=== PATIENT | male | born 1960 | race Caucasian/White ===

== ENCOUNTER 2024-03-30 18:52 | Emergency (ER) | payer OTHER, SELFPAY ==
--- NOTE | ~2024-03-30 | US_ITS ---
EXAMINATION: US venous doppler LE RT DATE: 03/30/2024 20:57 INDICATION: Right lower limb pain. TECHNIQUE: Grayscale ultrasound images without and with compression and Doppler ultrasound images of the right lower extremity veins were obtained. COMPARISON: None. FINDINGS: The visualized portions of right common femoral vein, profunda (deep) femoral vein, femoral vein, pop liteal vein, posterior tibial veins, and greater saphenous vein outflow are patent. IMPRESSION: 1. No deep venous thrombosis. Reviewed, dictated and finalized at location A.
[2024-03-30 18:54] VITALS: BP 154/61; PULSE 79; RESP 20; TEMP 36.1; O2SAT 100
--- NOTE | 2024-03-30 19:40 | ED.WOUNDLAC ---
HPI - Wound/Laceration General Chief Complaint: Wound/Laceration <CARO Rangel Last Filed: 03/31/24 00:33> Stated Complaint: WOUND R LEG /SP SURGERY IN [place] <CARO Rangel Last Filed: 03/31/24 00:33> Time Seen by Provider: 03/30/24 19:37 <CARO Rangel Last Filed: 03/31/24 00:33> Source: patient <CARO Rangel Last Filed: 03/31/24 00:33> Mode of arrival: ambulatory <CARO Rangel Last Filed: 03/31/24 00:33> Limitations: no limitations <CARO Rangel Last Filed: 03/31/24 00:33> History of Present Illness HPI narrative: Patient is a 63 y/o male, with PMH of L AKA, PVD, HTN, who presents to the ED with c/o wound to his R lower leg. Patient is a poor historian. He reports he had a vein surgery in his right lower leg 3-4 months ago. This was performed at [facility] in [facility]. He is unsure of the name of his surgeon. He states over the last several days, he has noticed increased purulent drainage from his wound. Daughter reports his bandage was filled with purulent drainage a couple of days ago. Patient reports subjective fevers and pain throughout his right lower leg. He takes gabapentin and Tylenol for his pain. Patient is on plavix and xarelto 2.5mg daily. Reports compliance with medications. Is waiting for insurance approval to be transferred to wound care in the area. Recently moved from [place], [place] area. <CARO Rangel Last Filed: 03/31/24 00:33> Related Data Allergies/Adverse Reactions: Allergies Allergy/AdvReac Type Severity Reaction Status Date / Time No Known Allergies Allergy Verified 03/30/24 18:58 <CARO Rangel Last Filed: 03/31/24 00:33> Review of Systems Review of Systems: All systems reviewed & are unremarkable except as noted in HPI. <Carisa Calvo PA-C - Last Filed: 03/31/24 00:33> All systems reviewed & are unremarkable except as noted in HPI and below <Carisa Calvo PA-C - Last Filed: 03/31/24 00:33> Exam Narrative: GENERAL: Chronically ill appearing, appears older than stated age, non-toxic, in no acute distress. HEAD: Normocephalic, atraumatic. RESPIRATORY: Airway patent, respirations nonlabored. CARDIOVASCULAR: Regular rate and rhythm without murmurs, rubs, or gallops. Peripheral pulses intact in RLE. MUSCULOSKELETAL: Moves all extremities. No gross deformities. L AKA. Stump site is clean and intact. Small hematoma to distal stump w/o significant tenderness. SKIN: Warm, dry, normal color. Large approx 16 cm vertical wound extending almost entire distance of juarez, R lower leg medial from tibial anterior border. Wound edges are approx 1-2cm apart still but appear to be healing well. There is some purulent drainage present in wound bed, particularly inferiorly. There is healthy granulation tissue present as well. Focal surrounding tenderness. Minimal surrounding warmth/erythema. Well healed vertical surgical scar on lateral edge of calf. No surrounding erythema or drainage. NEURO: A&O X3. Speech clear. Cranial nerves II-XII grossly intact. No ataxic movements. PSYCHIATRIC: Appropriate mood and affect. Normal interaction. <Carisa Calvo PA-C - Last Filed: 03/31/24 00:33> Course INFORMATION OFFICER/PA Physician Supervision Patient's HPI, Exam, and MDM were reviewed and I agreed with the workup and disposition done in the emergency department by the MLP. Patient was independently evaluated and assessed by myself and I had [id number] time with the patient and family members and we discussed plan of care. Patient does have a wound on his right lower extremity that is been well-healing for last 3 months but becoming more hot, erythematous and draining combination is serosanguineous and more purulent fluid over last few days although clinically appears very well with good granulation
[2024-03-30 20:20] VITALS: BP 146/65; PULSE 83; RESP 15; O2SAT 99
[2024-03-30 20:21] LABS: Basophils Percent Auto 0.3 % (0.2-1.2); Eosinophils Absolute Auto 0.3 K/mm3 (0-0.3); Eosinophils Percent Auto 4.9 % (0-4.4); Hematocrit 35.9 % (42.0-52.0); Hemoglobin 10.7 g/dL (14.0-18.0); Immature Granulocyte Absolute 0.02 K/mm3 (0.00-0.031); Immature Granulocyte Percent A 0.3 % (0-0.5); Lymphocytes Absolute Auto 0.81 K/mm3 (0.9-3.2); Lymphocytes Percent Auto 11.7 % (18.3-44.2); Mean Corpuscular HGB Conc 29.8 g/dl (32-36); Mean Corpuscular Hemoglobin 23.7 pg (26-34); Mean Corpuscular Volume 79.6 fl (80-100); Mean Platelet Volume 9.7 fl (7.4-10.4); Monocytes Absolute Auto 0.9 K/mm3 (0.1-0.6); Monocytes Percent Auto 12.4 % (2.6-8.5); Neutrophils Absolute Auto 4.9 K/mm3 (1.3-6.7); Neutrophils Percent Auto 70.4 % (45.5-73.1); Platelet Count Result 428 k/mm3 (150-375); Red Blood Count 4.51 M/mm3 (4.6-6.20); Red Cell Distribution Width 17.2 % (11.5-14.5); White Blood Count 6.9 K/mm3 (4.5-10.0)
[2024-03-30 20:34] LABS: Hypochromasia 1+; Ovalocytes 1+; Platelet Estimate Increased (Adequate)
[2024-03-30 20:35] LABS: INR 1.1; Prothrombin Time 14.2 Seconds (11.1-14.7); Schistocytes None Seen
[2024-03-30 20:36] LABS: Lactic Acid Reflex 1.2 mmol/L (0.7-2.0); Partial Thromboplastin Time 25.8 Seconds (22.3-36.8)
[2024-03-30 20:43] LABS: Alanine Aminotransferase 17 U/L (6-50); Albumin Level 4.1 g/dL (3.5-5.1); Alkaline Phosphatase 119 U/L (38-126); Anion Gap 7 mmol/L (4-12); Aspartate Amino Transferase 32 U/L (17-59); Bilirubin,Total 0.3 mg/dL (0.2-1.3); Blood Urea Nitrogen 17 mg/dL (9-20); CRP < 0.5 mg/dL (<1.0); Calcium 8.9 mg/dL (8.4-10.2); Carbon Dioxide 28 mmol/L (22-30); Chloride 102 mmol/L (98-107); Estimated Glomerular Filt Rate > 60; Glucose 106 mg/dL (65-110); Potassium 4.3 mmol/L (3.4-5.0); Sodium 137 mmol/L (137-145)
[2024-03-30] MEDS: HYDROcodone/acetaminophen (*CRX) 5-325 MG TABLET 1 TAB PO (20:49)
[2024-03-30 20:52] LABS: Erythrocyte Sedimentation Rate 19 mm/hr (0-20)
[2024-03-30] MEDS: DOXYCYCLINE HYCLATE 100 MG TABLET PO (22:37)
[2024-03-30 22:45] VITALS: BP 136/78; PULSE 74; RESP 18; TEMP 36.9; O2SAT 98
== END 2024-03-30 22:51 | disposition home or self-care (01) ==
PROVIDERS: Emergency Provider Physician Assistant
DX: T81.41XA Infection following a procedure, superficial incisional surgical site, initial encounter (principal); L03.115 Cellulitis of right lower limb; I73.9 Peripheral vascular disease, unspecified; Z79.02 Long term (current) use of antithrombotics/antiplatelets; Z79.01 Long term (current) use of anticoagulants; Y83.8 Other surgical procedures as the cause of abnormal reaction of the patient, or of later complication, without mention of misadventure at the time of the procedure
CPT/HCPCS: 36415; 80053; 83605; 85025; 85610; 85652; 85730; 86140; 93971; 99284; A9270

== ENCOUNTER 2024-04-26 19:52 | Observation (INO) | payer OTHER, SELFPAY ==
--- NOTE | ~2024-04-26 | XR_ITS ---
AP and lateral views of the right tibia/fibula Clinical History: Infection Findings: No acute fracture or dislocation is seen. Osseous alignment is anatomic. Joint spaces are p reserved without significant erosive or degenerative change. Soft tissues are unremarkable. Impression: No osseous or articular abnormality seen. Reviewed, dictated and finalized at [facility]. RUNNER Impression: No osseous or articular abnormality seen.
--- NOTE | ~2024-04-26 | CT_ITS ---
CT of the Abdomen and Pelvis: Indication: Status post fall Technique: 2.5 mm axial scans were obtained through the abdomen and pelvis following intravenous adm inistration of 100 cc of Omnipaque 350. Dose reduction technique was used on this scan by utilizing a utomated exposure control and iterative reconstruction technique. The dose-length product (DLP) was 1 064.17 mGy-cm. Findings: Scans through the lung bases demonstrate mild emphysematous changes. The liver, spleen, pancreas, gallbladder, adrenals and kidneys are within normal limits. There are ex tensive atherosclerotic calcifications of the aorta and iliac vessels. No lymphadenopathy. No bowel obstruction or bowel wall thickening. There is no evidence to suggest acute appendicitis. Images through the pelvis were performed. Urinary bladder unremarkable. No pelvic mass seen. No ascit es. Large right hydrocele noted Impression: No acute abnormality. Large right hydrocele. Mild emphysema at the lung bases. Reviewed, dictated and finalized at [facility]. ANIC GENERAL OPERATIONAL TEST Impression: No acute abnormality. Large right hydrocele. Mild emphysema at the lung bases.
[2024-04-26 19:55] VITALS: BP 164/68; PULSE 84; RESP 16; TEMP 36.4; O2SAT 100
[2024-04-26 20:27] LABS: Basophils Percent Auto 0.4 % (0.2-1.2); Eosinophils Absolute Auto 0.2 K/mm3 (0-0.3); Eosinophils Percent Auto 4.4 % (0-4.4); Hematocrit 35.2 % (42.0-52.0); Hemoglobin 10.6 g/dL (14.0-18.0); Immature Granulocyte Absolute 0.01 K/mm3 (0.00-0.031); Immature Granulocyte Percent A 0.2 % (0-0.5); Lymphocytes Absolute Auto 0.72 K/mm3 (0.9-3.2); Lymphocytes Percent Auto 14.5 % (18.3-44.2); Mean Corpuscular HGB Conc 30.1 g/dl (32-36); Mean Corpuscular Hemoglobin 23.8 pg (26-34); Mean Corpuscular Volume 79.1 fl (80-100); Mean Platelet Volume 9.4 fl (7.4-10.4); Monocytes Absolute Auto 0.5 K/mm3 (0.1-0.6); Monocytes Percent Auto 10.5 % (2.6-8.5); Neutrophils Absolute Auto 3.5 K/mm3 (1.3-6.7); Platelet Count Result 361 k/mm3 (150-375); Red Blood Count 4.45 M/mm3 (4.6-6.20); Red Cell Distribution Width 17.1 % (11.5-14.5)
[2024-04-26 20:38] LABS: Alanine Aminotransferase 19 U/L (6-50); Albumin Level 4.1 g/dL (3.5-5.1); Alkaline Phosphatase 113 U/L (38-126); Anion Gap 9 mmol/L (4-12); Aspartate Amino Transferase 25 U/L (17-59); Bilirubin,Total 0.3 mg/dL (0.2-1.3); Blood Urea Nitrogen 10 mg/dL (9-20); Calcium 9.2 mg/dL (8.4-10.2); Carbon Dioxide 27 mmol/L (22-30); Chloride 100 mmol/L (98-107); Estimated CRCL calculation 83 ml/min; Estimated Glomerular Filt Rate > 60; Glucose 124 mg/dL (65-110); Potassium 3.4 mmol/L (3.4-5.0); Sodium 136 mmol/L (137-145)
[2024-04-26 20:40] LABS: Prothrombin Time 13.6 Seconds (11.1-14.7)
[2024-04-26 21:09] VITALS: BP 143/62; PULSE 81; RESP 18; TEMP 36.4; O2SAT 100
--- NOTE | 2024-04-26 21:32 | ED.SKABFB ---
HPI - Skin/Abscess/Foreign Bdy General Chief complaint: Skin/Abscess/Foreign Body Stated complaint: infection in stub ; burning Time Seen by Provider: 04/26/24 21:30 Source: patient and family Limitations: other (patient speaks quickly with thick accent making it difficult to understand at times) History of Present Illness HPI narrative: Patient presents with concern for an infection in his stub ; he has a left [id number] amputation. He also is experiencing a burning sensation. In addition he has pain in his right leg. He denies any fevers but he does state that he has been having a ' fever in my leg. Denies any phantom pain. Patient had a previous vein graft surgery performed in [place]. He also a procedure done in [place]. He had a doctor named Dr. Reece at 1 time. He denies any chest pain. He has been taking Tylenol and ibuprofen 2 or 3 times per day. He has been walking on his right leg but not now do a symptoms. The left leg amputation was performed 2 years ago. Approximately 6 months ago he had a vascular surgery procedure on the right. He was initially at [facility] but then transferred to [place]. He has not followed up for several of his appointments because he moved. He notes that he had multiple staph infections. He is also concerned because he is out of his medications and a blood thinner (does not know which 1) and his blood pressure medication. He does not know any of these medications though he states the last time they were filled was at [facility] in [facility] as well as some at [facility] in [place]. He also previously min to a wound clinic in [place] the last time he was there was 2 months ago. He states that the right leg has chronically been open since his procedure and is not healing. Two nights ago he fell out of his bed striking his left flank/back/abdomen. Related Data Home Medications Medication Instructions Recorded Confirmed albuterol sulfate 90 mcg/actuation 2 puff inhalation Q4H PRN SOB 04/27/24 04/27/24 aerosol inhaler aspirin 81 mg chewable tablet 81 mg PO DAILY 04/27/24 04/27/24 atorvastatin 40 mg tablet 40 mg PO DAILY 04/27/24 04/27/24 clopidogrel 75 mg tablet 75 mg PO BID 04/27/24 04/27/24 duloxetine 60 mg capsule,delayed 60 mg PO DAILY 04/27/24 04/27/24 release gabapentin 600 mg tablet 600 mg PO BID 04/27/24 04/27/24 isosorbide mononitrate 30 mg 30 mg PO DAILY 04/27/24 04/27/24 tablet,extended release 24 hr metoprolol tartrate 25 mg tablet 25 mg PO DAILY 04/27/24 04/27/24 pantoprazole 40 mg tablet,delayed 40 mg PO BID 04/27/24 04/27/24 release potassium chloride 10 mEq 10 meq PO DAILY 04/27/24 04/27/24 tablet,extended release umeclidinium 62.5 mcg-vilanterol 1 inh inhalation DAILY 04/27/24 04/27/24 25 mcg/actuation powdr for inhalation (Anoro Ellipta) Allergies Allergy/AdvReac Type Severity Reaction Status Date / Time No Known Allergies Allergy Verified 03/30/24 18:58 PMFSH Past Medical History Medical History Above knee amputation of left lower extremity Surgical History Surgical History (Updated 04/28/24 @ 08:22 by Maria Esther Rodriguez MD) H/O vascular surgery Right Social History Social History Smoking packs per day: 1 Smoking cigarettes per day: 20.0 Years smoked: 20 Smoking pack-years: 20.00 Smoking status: Current every day smoker Substance use type: does not use Do You Feel Safe in your Home?: Yes Lack of Transportation: YES Lack of Food: Sometimes True Current Housing: I Have Housing Concerned About Future Housing: No Difficulty Paying Gas/Electric Bills: No Difficulty Paying for Meds: YES Currently Unemployed: No Education: Grade School Difficulty w/ Childcare or Family Care: No Spiritual care concerns: No Exam Narrative: GENERAL: well-nourished, and in no acute distress. HEAD: Normocephalic, atraumatic. EYES: Non injected, non icteric ENT: Nares clear, no rhinorrhea or epistaxis. NECK: Supple. CHEST: Speaking in full sentences. No respiratory distress. HEART: Regular rate and rhythm. . ABDOMEN: Soft, nondistended. No tenderness to palpation or rigidity/guarding, not peritoneal. Ecchymosis along left low back/lateral aspect of left abdomen. EXTREMITIES: Left AKA with small areas of previous ulceration but otherwise without surrounding cellulitis or induration or purulent dicharge. Right lower leg with linear surgical scar that appears to be healing appropriately without purulent discharge although there is edema and non-distinct surrounding erythema that is warm to the touch compared to the rest of the leg. No induration. SKIN: Warm, dry, no rash. NEURO: No focal deficits. Alert and oriented x3. Very difficult to understand given rapidity of speech and thick accent however speaks without aphasia or dysarthria or dysphonia. PSYCH: Normal mood and affect. Course Vital Signs Vital signs: Vital Signs Temperature 97.6 F 04/26/24 19:55 Pulse Rate 84 04/26/24 19:55 Respiratory Rate 16 04/26/24 19:55 Blood Pressure 164/68 H 04/26/24 19:55 Pulse Oximetry 100 04/26/24 19:55 Oxygen Delivery Room Air 04/26/24 19:55 Temperature 98.0 F 04/28/24 05:28 Pulse Rate 57 L 04/28/24 05:28 Respiratory Rate 18 04/28/24 05:28 Blood Pressure 146/65 H 04/28/24 05:28 Pulse Oximetry 98 04/28/24 05:28 Oxygen Delivery Room Air 04/27/24 08:45 Fraction of Inspired Oxygen 21 04/27/24 08:45 MDM - Skin/Abscess/Foreign Bdy MDM Narrative Medical decision making narrative: Patient presents with multiple complaints. He is concerned for infection in his legs. Has a left AKA and history of vascular surgery on the right which has left him with a chronic slow healing wound for which he previously saw wound care. He is also out of his medications. Has not followed up with various specialists which have all been done at varying locations. In the emergency department he is afebrile with vital signs notable for hypertension. Of note, patient was diagnosed with cellulitis on 03/31/2024 and prescribed doxycycline. He states he took the entire course. Point of care ultrasound performed by me which does demonstrate cobblestoning concerning for edema. This, combined with nondescript/not well circumscribed area of erythema with warmth compared to surrounding areas concerning for cellulitis, and in particular cellulitis that failed outpatient p.o. therapy. Area marked with skin pen. Will initiate vancomycin. Discussed patient with on-call hospitalist Dr Bhat who accepts admission as full admit to medical floor, w/o telemetry. She advised to start Pseudomonas coverage if patient is a diabetic but he confirms he is not. Discussed that patient will require refills of several of his prescriptions which she states the day team will be able to do once his pharmacy is open. Discussed the incidental findings on the CT. Differential Diagnosis Differential diagnosis: Likely cellulitis and other (sepsis, considered necrotizing fasciitis, abscess, phantom pain) Lab Data Attestation: I reviewed the patient's lab results. Lab results narrative: Microcytic anemia, stable from previous Very mild CRP elevation and ESR elevation. 04/26/24 20:17 04/28/24 06:12 Labs: Lab Results 04/26/24 04/26/24 04/26/24 Range/Units 20:17 22:17 22:57 WBC 5.0 (4.5-10.0) K/mm3 RBC 4.45 L (4.6-6.20) M/mm3 Hgb 10.6 L (14.0-18.0) g/dL Hct 35.2 L (42.0-52.0) % MCV 79.1 L (80-100) fl MCH 23.8 L (26-34) pg MCHC 30.1 L (32-36) g/dl RDW 17.1 H (11.5-14.5) % Plt Count 361 (150-375) k/mm3 MPV 9.4 (7.4-10.4) fl Immature Gran % (Auto) 0.2 (0-0.5) % Neut % (Auto) 70.0 (45.5-73.1) % Lymph % (Auto) 14.5 L (18.3-44.2) % [place] % (Auto) 10.5 H (2.6-8.5) % Eos % (Auto) 4.4 (0-4.4) % Baso % (Auto) 0.4 (0.2-1.2) % Lymph # (Auto) 0.72 L (0.9-3.2) K/mm3 [place] # (Auto) 0.5 (0.1-0.6) K/mm3 Eos # (Auto) 0.2 (0-0.3) K/mm3 Baso # (Auto) 0.0 (0.0-0.1) K/mm3 Abs Immat Gran (auto) 0.01 (0.00-0.031) K/mm3 Absolute Neuts (auto) 3.5 (1.3-6.7) K/mm3 Absolute Nucleated RBC 0.000 (0.0-0.012) K/mm3 Nucleated RBC % 0.0 (0.0-0.2) % ESR 32 H (0-20) mm/hr PT 13.6 13.9 (11.1-14.7) Seconds INR 1.0 1.0 APTT 26.8 (22.3-36.8) Seconds D-Dimer 0.43 (<0.48) ug/mL Sodium 136 L (137-145) mmol/L Potassium 3.4 (3.4-5.0) mmol/L Chloride 100 (98-107) mmol/L Carbon Dioxide 27 (22-30) mmol/L Anion Gap 9 (4-12) mmol/L BUN 10 D (9-20) mg/dL Creatinine 0.80 (0.7-1.3) mg/dL Estim Creat Clear Calc 83 ml/min Estimated GFR > 60 (59 - ) Glucose 124 H (65-110) mg/dL Lactic Acid 1.3 (0.7-2.0) mmol/L Calcium 9.2 (8.4-10.2) mg/dL Total Bilirubin 0.3 (0.2-1.3) mg/dL AST 25 (17-59) U/L ALT 19 (6-50) U/L Alkaline Phosphatase 113 (38-126) U/L C-Reactive Protein 1.3 H (<1.0) mg/dL Total Protein 8.0 (6.3-8.2) g/dL Albumin 4.1 (3.5-5.1) g/dL Urine Color (Yellow) Urine Appearance (Clear) Urine pH (5.0-9.0) Ur Specific [place] (1.001-1.035) Urine Protein (Negative) mg/dL Urine Glucose (UA) (Negative) mg/dL Urine Ketones (Negative) mg/dL Ur Blood (Man) (Negative) Urine Nitrate (Negative) Urine Bilirubin (Negative) Urine Urobilinogen (<2.0) mg/dL Leukocyte Esterase Rfl (Negative) KANA/UL 04/27/24 Range/Units 00:37 WBC (4.5-10.0) K/mm3 RBC (4.6-6.20) M/mm3 Hgb (14.0-18.0) g/dL Hct (42.0-52.0) % MCV (80-100) fl MCH (26-34) pg MCHC (32-36) g/dl RDW (11.5-14.5) % Plt Count (150-375) k/mm3 MPV (7.4-10.4) fl Immature Gran % (Auto) (0-0.5) % Neut % (Auto) (45.5-73.1) % Lymph % (Auto) (18.3-44.2) % [place] % (Auto) (2.6-8.5) % Eos % (Auto) (0-4.4) % Baso % (Auto) (0.2-1.2) % Lymph # (Auto) (0.9-3.2) K/mm3 [place] # (Auto) (0.1-0.6) K/mm3 Eos # (Auto) (0-0.3) K/mm3 Baso # (Auto) (0.0-0.1) K/mm3 Abs Immat Gran (auto) (0.00-0.031) K/mm3 Absolute Neuts (auto) (1.3-6.7) K/mm3 Absolute Nucleated RBC (0.0-0.012) K/mm3 Nucleated RBC % (0.0-0.2) % ESR (0-20) mm/hr PT (11.1-14.7) Seconds INR APTT (22.3-36.8) Seconds D-Dimer (<0.48) ug/mL Sodium (137-145) mmol/L Potassium (3.4-5.0) mmol/L Chloride (98-107) mmol/L Carbon Dioxide (22-30) mmol/L Anion Gap (4-12) mmol/L BUN (9-20) mg/dL Creatinine (0.7-1.3) mg/dL Estim Creat Clear Calc ml/min Estimated GFR (59 - ) Glucose (65-110) mg/dL Lactic Acid (0.7-2.0) mmol/L Calcium (8.4-10.2) mg/dL Total Bilirubin (0.2-1.3) mg/dL AST (17-59) U/L ALT (6-50) U/L Alkaline Phosphatase (38-126) U/L C-Reactive Protein (<1.0) mg/dL Total Protein (6.3-8.2) g/dL Albumin (3.5-5.1) g/dL Urine Color Yellow (Yellow) Urine Appearance Clear (Clear) Urine pH 6.5 (5.0-9.0) Ur Specific [place] 1.033 (1.001-1.035) Urine Protein Negative (Negative) mg/dL Urine Glucose (UA) Negative (Negative) mg/dL Urine Ketones Negative (Negative) mg/dL Ur Blood (Man) Negative (Negative) Urine Nitrate Negative (Negative) Urine Bilirubin Negative (Negative) Urine Urobilinogen 0.2 (<2.0) mg/dL Leukocyte Esterase Rfl Negative (Negative) KANA/UL Imaging Data Attestation: I personally reviewed and interpreted this imaging study as follows: My impression: Multiple areas of lucency on x-ray of tibia/fibula on my independent interpretation of plain film which is likely secondary to postsurgical clips/intervention. No obvious bony deformities or evidence of gas. Radiologist's impression: CT Abd Pelvix Stat Rad: No retroperitoneal hematoma. Renal injury. Free air or free fluid. Incidental findings: Bifemoral artery bypass graft his within the subcutaneous fat tissue and not in continuity with femoral arteries. Degenerative changes of the spine. Aortoiliac atherosclerosis. Stents in the bilateral external iliac arteries. 1.1 cm right hepatic cyst. Right scrotal hydrocele. 5 mm right renal cyst. Discharge Plan Discharge Clinical Impression: Cellulitis of right anterior lower leg, Microcytic anemia, CRP elevated, Elevated erythrocyte sedimentation rate Patient Disposition: Still a Patient Condition: Stable
[2024-04-26 22:24] LABS: CRP 1.3 mg/dL (<1.0)
[2024-04-26] MEDS: HYDROcodone/acetaminophen (*CRX) 5-325 MG TABLET 1 TAB PO (22:26)
[2024-04-26 22:38] LABS: Lactic Acid Reflex 1.3 mmol/L (0.7-2.0)
[2024-04-26 23:07] VITALS: BP 144/53; PULSE 61; RESP 15; O2SAT 98
[2024-04-26 23:41] LABS: Erythrocyte Sedimentation Rate 32 mm/hr (0-20)
[2024-04-27 00:25] LABS: Partial Thromboplastin Time 26.8 Seconds (22.3-36.8); Prothrombin Time 13.9 Seconds (11.1-14.7)
[2024-04-27 00:26] LABS: D Dimer 0.43 ug/mL (<0.48)
[2024-04-27 00:41] VITALS: BP 105/78; PULSE 64; RESP 14; O2SAT 97
[2024-04-27 00:44] LABS: Add Urine Microscopic? NO; Appearance Urine Clear (Clear); Bilirubin Urine Negative (Negative); Blood Urine Negative (Negative); Color Urine Yellow (Yellow); Glucose Urine UA Negative (Negative); Ketones Urine Negative (Negative); Leukocyte Esterase Ur Negative LEU/UL (Negative); Nitrate Urine Negative (Negative); Protein Urine Negative (Negative); Specific Grav Ur 1.033 (1.001-1.035); Urobilinogen Urine 0.2 mg/dL (<2.0); pH Urine 6.5 (5.0-9.0)
--- NOTE | 2024-04-27 01:17 | PM.IMHP ---
H&P: HPI History of Present Illness Date/Time: 04/27/24 01:17 Chief Complaint: right leg redness Narrative: This is a 64-year-old male with past medical history significant for peripheral vascular disease, patient is status post bypass grafting to the right lower extremity 6 months ago, he also has a left AKA, patient presents to the emergency room due to redness tenderness swelling of the right lower extremity along graft site. Patient is not a very good historian has trouble remembering events to detail. Preliminary workup was lower yielding however imaging final official report is pending at the time of this dictation. Patient has been admitted for further evaluation management and treatment. Review of Systems Review of Systems: right lower extremities swelling, tenderness, redness along side graft site wound is healed by secondary intention [facility] Social History Social History Smoking packs per day: 1 Smoking cigarettes per day: 20.0 Years smoked: 20 Smoking pack-years: 20.00 Smoking status: Current every day smoker Substance use type: does not use Do You Feel Safe in your Home?: Yes Lack of Transportation: YES Lack of Food: Sometimes True Current Housing: I Have Housing Concerned About Future Housing: No Difficulty Paying Gas/Electric Bills: No Difficulty Paying for Meds: YES Currently Unemployed: No Education: Grade School Difficulty w/ Childcare or Family Care: No Spiritual care concerns: No Meds Home Medications and Allergies Home Medications Medication Instructions Recorded Confirmed Type albuterol sulfate 90 mcg/actuation 2 puff inhalation Q4H PRN SOB 04/27/24 04/27/24 History aerosol inhaler aspirin 81 mg chewable tablet 81 mg PO DAILY 04/27/24 04/27/24 History atorvastatin 40 mg tablet 40 mg PO DAILY 04/27/24 04/27/24 History clopidogrel 75 mg tablet 75 mg PO BID 04/27/24 04/27/24 History duloxetine 60 mg capsule,delayed 60 mg PO DAILY 04/27/24 04/27/24 History release gabapentin 600 mg tablet 600 mg PO BID 04/27/24 04/27/24 History isosorbide mononitrate 30 mg 30 mg PO DAILY 04/27/24 04/27/24 History tablet,extended release 24 hr metoprolol tartrate 25 mg tablet 25 mg PO DAILY 04/27/24 04/27/24 History pantoprazole 40 mg tablet,delayed 40 mg PO BID 04/27/24 04/27/24 History release potassium chloride 10 mEq 10 meq PO DAILY 04/27/24 04/27/24 History tablet,extended release umeclidinium 62.5 mcg-vilanterol 1 inh inhalation DAILY 04/27/24 04/27/24 History 25 mcg/actuation powdr for inhalation (Anoro Ellipta) Allergies Allergy/AdvReac Type Severity Reaction Status Date / Time No Known Allergies Allergy Verified 03/30/24 18:58 Vital Signs Vital Signs - 24 hr 04/26/24 19:55 04/26/24 21:09 04/26/24 23:07 Temperature 97.6 F 97.6 F Pulse Rate 84 81 61 Respiratory Rate 16 18 15 Blood Pressure 164/68 H 143/62 H 144/53 H Pulse Oximetry 100 100 98 Oxygen Delivery Room Air 04/27/24 00:41 Temperature Pulse Rate 64 Respiratory Rate 14 Blood Pressure 105/78 Pulse Oximetry 97 Oxygen Delivery Exam Narrative: patient is laying in a stretcher Const: General: cooperative, comfortable, no acute distress, well developed, alert, awake, ill appearing chronically and average body habitus Nutritional Appearance: average body habitus Orientation/consciousness: patient oriented x3 HENMT: Head: normal to inspection, normocephalic and atraumatic Ears: hearing grossly normal bilaterally Face/Nose/Sinus: normal facial exam Face and sinus: normal facial exam Eyes: General: appearance normal, both eyes and all related structures Pupils: Equal, round and reactive pupils present EOM: EOMs intact bilaterally Neck: Neck: full ROM, no lymphadenopathy and no JVD Thyroid: thyroid normal Lymphatic: no lymphadenopathy noted Resp: Effort & Inspection: normal respiratory effort and able to speak in complete sentences Auscultation: clear to auscultation bilaterally Cardio: Jugular venous distension: no JVD Rate: regular rate Rhythm: regular rhythm Heart sounds: S1 normal heart sound present and S2 normal heart sound present GI: GI Palp: Yes Soft to palpation and Yes No hepatosplenomegaly present : General: Yes deferred Skin: Rashes: no rashes Wounds: wounds noted right leg without odor and with surrounding erythema Other: stump with excoriations Neuro: General: patient oriented x3 and CN's II-XI intact bilaterally Cranial nerves: Yes CN's II-XII intact bilaterally and Yes Equal, round and reactive pupils present Cognition (Neuro): normal cognition Speech: normal speech Gait exam (Neuro): Unable to assess gait Motor exam (neuro): 5/5 motor strength present throughout Other: patient has a left AKA Extrem: Right lower extremity: lower leg Details: erythema and other ( surgical wound on the medial aspect) Other: left AKA H&P: Results Labs Labs: Short CBC 04/26/24 Range/Units 20:17 WBC 5.0 (4.5-10.0) K/mm3 Hgb 10.6 L (14.0-18.0) g/dL Hct 35.2 L (42.0-52.0) % Plt Count 361 (150-375) k/mm3 BMP 04/26/24 20:17 Sodium 136 L Potassium 3.4 Chloride 100 Carbon Dioxide 27 BUN 10 D Creatinine 0.80 Glucose 124 H Calcium 9.2 Liver Function 04/26/24 Range/Units 20:17 Total Bilirubin 0.3 (0.2-1.3) mg/dL AST 25 (17-59) U/L ALT 19 (6-50) U/L Alkaline Phosphatase 113 (38-126) U/L Albumin 4.1 (3.5-5.1) g/dL Urine 04/27/24 Range/Units 00:37 Urine Color Yellow (Yellow) Urine Appearance Clear (Clear) Urine pH 6.5 (5.0-9.0) Ur Specific [place] 1.033 (1.001-1.035) Urine Protein Negative (Negative) mg/dL Urine Glucose (UA) Negative (Negative) mg/dL Assessment and Plan Assessment and plan (1) Cellulitis of right anterior lower leg: Code(s): L03.115 - Cellulitis of right lower limb Status: Acute Assessment and Plan: admit to regular medical floor patient started on vancomycin await cultures (2) Peripheral vascular disease: Code(s): I73.9 - Peripheral vascular disease, unspecified Status: Acute Assessment and Plan: a status post bypass grafting (3) Unilateral AKA: Code(s): S78.119A - Complete traumatic amputation at level between unspecified hip and knee, initial encounter Status: Acute Assessment and Plan: patient has been having recurrent falls PT OT consult (4) COPD with emphysema: Code(s): J43.9 - Emphysema, unspecified Status: Acute Assessment and Plan: not actively wheezing continue home meds Hospitalist MIPS Advance Care Plan I have confirmed that the patient's Advanced Care Plan is present, code status is documented, or surrogate decision maker is listed in patient medical record.: Yes Medication Reconciliation I have utilized all available resources to obtain, update and review the patients current medications (includes all prescriptions, OTC, herbals, cannabis, and nutritional supplements).: Yes
--- NOTE | 2024-04-27 01:44 | PC.NURSE ---
pt sister called up and asked for an update. this RN verified with the pt that would be fine and pt agreed. pt sister was updated at this time to inform that the pt would be admitted pt sister: Lizzy
--- NOTE | 2024-04-27 01:59 | ADMGEN ---
This patient, Osito Aburto, was admitted to [facility] Surg Room 303-01. Patient/family oriented to hospital policies and general routines including ID bracelet, bed and alarms, visiting hours, pain management, procedures, bathroom and other care routines, personal items, smoking policy, room service/diet, and visiting hours. Information on how to activate the Rapid Response Team has been discussed. Patient/Family are encouraged to report perceived risks to care and to ask questions if they do not understand what they are told or what they should do.
[2024-04-27] MEDS: VANCOMYCIN 1,500 MG/NS 500 ML 1,500 MG/500 ML BAG 250 MG IVPB ×2 (02:19→14:12)
[2024-04-27 06:00] VITALS: BP 151/57; PULSE 75; RESP 12; TEMP 36.3; O2SAT 95
[2024-04-27 08:45] VITALS: O2SAT 96
[2024-04-27] MEDS: UMECLIDINIUM/VILANTEROL 62.5-25 MCG ELLIPTA 1 PUFF INHALATION (08:47)
[2024-04-27] MEDS: CLOPIDOGREL BISULFATE 75 MG TABLET PO (08:49)
[2024-04-27] MEDS: ACETAMINOPHEN 500 MG TABLET 1000 MG PO (08:49)
[2024-04-27] MEDS: DULoxetine HCL 60 MG CAPSULE.DR PO (08:49)
[2024-04-27] MEDS: ATORVASTATIN 40 MG TABLET PO (08:49)
[2024-04-27] MEDS: ASPIRIN 81 MG CHEWABLE TABLET PO (08:49)
[2024-04-27] MEDS: ISOSORBIDE MONONITRATE 30 MG TAB.ER.24H PO (08:50)
[2024-04-27] MEDS: GABAPENTIN 300 MG CAPSULE 600 MG PO ×2 (08:50→17:39)
[2024-04-27] MEDS: METOPROLOL TARTRATE 12.5 MG TABLET PO ×2 (08:50→21:49)
[2024-04-27] MEDS: PANTOPRAZOLE 40 MG TABLET PO ×2 (08:50→21:49)
--- NOTE | 2024-04-27 09:55 | PM.IMPN ---
Progress Note: A&P Assessment and Plan (1) Cellulitis of right anterior lower leg: Code(s): L03.115 - Cellulitis of right lower limb Status: Acute Assessment and Plan: admit to regular medical floor patient started on vancomycin await cultures (2) Peripheral vascular disease: Code(s): I73.9 - Peripheral vascular disease, unspecified Status: Acute Assessment and Plan: a status post bypass grafting (3) Unilateral AKA: Code(s): S78.119A - Complete traumatic amputation at level between unspecified hip and knee, initial encounter Status: Acute Assessment and Plan: patient has been having recurrent falls PT OT consult- ordered (4) COPD with emphysema: Code(s): J43.9 - Emphysema, unspecified Status: Acute Assessment and Plan: not actively wheezing continue home meds Time Spent With Patient Time with patient: Greater than 35 minutes Subjective Date/time seen: 04/27/24 09:55 Interval history: Narrative retrieved from H/P: This is a 64-year-old male with past medical history significant for peripheral vascular disease, patient is status post bypass grafting to the right lower extremity 6 months ago, he also has a left AKA, patient presents to the emergency room due to redness tenderness swelling of the right lower extremity along graft site. Patient is not a very good historian has trouble remembering events to detail. Preliminary workup was lower yielding however imaging final official report is pending at the time of this dictation. Patient has been admitted for further evaluation management and treatment. 04/27- pt is seen and examined. Receiving IV antibiotics. He is resting with eyes closed. voices no complains. Review of Systems Review of Systems: right lower extremities swelling, tenderness, redness along side graft site wound is healed Exam Narrative: patient is laying in a stretcher Const: General: cooperative, comfortable, no acute distress, well developed, alert, awake, ill appearing chronically and average body habitus Nutritional Appearance: average body habitus Orientation/consciousness: patient oriented x3 HENMT: Head: normal to inspection, normocephalic and atraumatic Ears: hearing grossly normal bilaterally Face/Nose/Sinus: normal facial exam Face and sinus: normal facial exam Eyes: General: appearance normal, both eyes and all related structures Pupils: Equal, round and reactive pupils present EOM: EOMs intact bilaterally Neck: Neck: full ROM, no lymphadenopathy and no JVD Thyroid: thyroid normal Lymphatic: no lymphadenopathy noted Resp: Effort & Inspection: normal respiratory effort and able to speak in complete sentences Auscultation: clear to auscultation bilaterally Cardio: Jugular venous distension: no JVD Rate: regular rate Rhythm: regular rhythm Heart sounds: S1 normal heart sound present and S2 normal heart sound present : General: Yes deferred Skin: General skin exam: wounds noted Rashes: no rashes Wounds: wounds noted right leg without odor and with surrounding erythema Other: stump with excoriations Neuro: General: patient oriented x3, CN's II-XI intact bilaterally and Unable to assess gait Cranial nerves: Yes CN's II-XII intact bilaterally and Yes Equal, round and reactive pupils present Cognition (Neuro): normal cognition Speech: normal speech Gait exam (Neuro): Unable to assess gait Motor exam (neuro): 5/5 motor strength present throughout Other: patient has a left AKA Extrem: Right lower extremity: lower leg Details: erythema and other ( surgical wound on the medial aspect) Other: left AKA Objective Data Vital Signs Vital Signs: Vital Signs - 24 hr 04/26/24 19:55 04/26/24 21:09 04/26/24 23:07 Temperature 97.6 F 97.6 F Pulse Rate 84 81 61 Respiratory Rate 16 18 15 Blood Pressure 164/68 H 143/62 H 144/53 H Pulse Oximetry 100 100 98 Oxygen Delivery Room Air Fraction of Inspired Oxygen 04/27/24 00:41 04/27/24 06:00 04/27/24 08:45 Temperature 97.3 F L Pulse Rate 64 75 Respiratory Rate 14 12 Blood Pressure 105/78 151/57 H Pulse Oximetry 97 95 96 Oxygen Delivery Room Air Fraction of Inspired Oxygen 21 Intake/Output Intake/Output: Intake & Output 04/24/24 04/25/24 04/26/24 04/27/24 23:59 23:59 23:59 23:59 Intake Total 980 Balance 980 Meds/Results Medications: Active Medications Generic Name Dose Route Start Last Admin Trade Name Freq PRN Reason Stop Dose Admin Acetaminophen 1,000 mg 04/27/24 02:36 04/27/24 08:49 Acetaminophen 500 Mg Tablet PO 1,000 mg Q6H PRN Administration Mild Pain (1-3) or Fever Al Hydrox/Mg Hydrox/Simethicone 30 ml 04/27/24 02:36 Mag Hydrox/Al Hydrox/Simeth 30 Ml Udc PO Q6H PRN Indigestion Albuterol 2 puff 04/27/24 02:35 Albuterol Sulfate (*Sp) Aerosol 1 Puff INHALATION Q4HRT PRN Shortness Of Breath Aspirin 81 mg 04/27/24 09:00 04/27/24 08:49 Aspirin 81 Mg Chewable Tablet PO 81 mg DAILY ASHLEE Administration Atorvastatin Calcium 40 mg 04/27/24 09:00 04/27/24 08:49 Atorvastatin 40 Mg Tablet PO 40 mg DAILY ASHLEE Administration Clopidogrel Bisulfate 75 mg 04/27/24 09:00 04/27/24 08:49 Clopidogrel Bisulfate 75 Mg Tablet PO 75 mg DAILY ASHLEE Administration Duloxetine HCl 60 mg 04/27/24 09:00 04/27/24 08:49 Duloxetine Hcl 60 Mg Capsule.Dr PO 60 mg DAILY ASHLEE Administration Gabapentin 600 mg 04/27/24 09:00 04/27/24 08:50 Gabapentin 300 Mg Capsule PO 600 mg BID ASHLEE Administration Vancomycin HCl 1,500 mg in 500 mls @ 250 mls/hr 04/27/24 02:00 04/27/24 02:19 Vancomycin 1,500 Mg/Ns 500 Ml IVPB 250 mls/hr Q12H ASHLEE Administration Isosorbide Mononitrate 30 mg 04/27/24 09:00 04/27/24 08:50 Isosorbide Mononitrate 30 Mg Tab.Er.24h PO 30 mg DAILY ASHLEE Administration Metoprolol Tartrate 12.5 mg 04/27/24 09:00 04/27/24 08:50 Metoprolol Tartrate 12.5 Mg Tablet PO 12.5 mg Q12HR ASHLEE Administration Ondansetron HCl 4 mg 04/27/24 02:36 Ondansetron Inj 4 Mg/2 Ml Vial IV PUSH Q6H PRN Nausea And Vomiting Pantoprazole Sodium 40 mg 04/27/24 09:00 04/27/24 08:50 Pantoprazole 40 Mg Tablet PO 40 mg Q12HR ASHLEE Administration Polyethylene Glycol 17 gm 04/27/24 02:36 Polyethylene Glycol 3350 17 Gm Powd.Pack PO QAM PRN Constipation Umeclidinium/Vilanterol 1 puff 04/27/24 09:00 04/27/24 08:47 Umeclidinium/Vilanterol 62.5-25 Mcg Ellipta INHALATION 1 puff DAILY ASHLEE Administration Radiology Results: ITS Impressions Abdomen/Pelvis CT 04/27/24 05:22 Impression: No acute abnormality. Large right hydrocele. Mild emphysema at the lung bases. Tibia/Fibula X-Ray 04/27/24 05:35 Impression: No osseous or articular abnormality seen. Labs Labs: Laboratory Results - last 24 hr 04/26/24 04/26/24 04/26/24 20:17 22:17 22:57 WBC 5.0 RBC 4.45 L Hgb 10.6 L Hct 35.2 L MCV 79.1 L MCH 23.8 L MCHC 30.1 L RDW 17.1 H Plt Count 361 MPV 9.4 Immature Gran % (Auto) 0.2 Neut % (Auto) 70.0 Lymph % (Auto) 14.5 L [place] % (Auto) 10.5 H Eos % (Auto) 4.4 Baso % (Auto) 0.4 Lymph # (Auto) 0.72 L [place] # (Auto) 0.5 Eos # (Auto) 0.2 Baso # (Auto) 0.0 Abs Immat Gran (auto) 0.01 Absolute Neuts (auto) 3.5 Absolute Nucleated RBC 0.000 Nucleated RBC % 0.0 ESR 32 H PT 13.6 13.9 INR 1.0 1.0 APTT 26.8 D-Dimer 0.43 Sodium 136 L Potassium 3.4 Chloride 100 Carbon Dioxide 27 Anion Gap 9 BUN 10 D Creatinine 0.80 Estim Creat Clear Calc 83 Estimated GFR > 60 Glucose 124 H Lactic Acid 1.3 Calcium 9.2 Total Bilirubin 0.3 AST 25 ALT 19 Alkaline Phosphatase 113 C-Reactive Protein 1.3 H Total Protein 8.0 Albumin 4.1 Urine Color Urine Appearance Urine pH Ur Specific [place] Urine Protein Urine Glucose (UA) Urine Ketones Ur Blood (Man) Urine Nitrate Urine Bilirubin Urine Urobilinogen Leukocyte Esterase Rfl 04/27/24 00:37 WBC RBC Hgb Hct MCV MCH MCHC RDW Plt Count MPV Immature Gran % (Auto) Neut % (Auto) Lymph % (Auto) [place] % (Auto) Eos % (Auto) Baso % (Auto) Lymph # (Auto) [place] # (Auto) Eos # (Auto) Baso # (Auto) Abs Immat Gran (auto) Absolute Neuts (auto) Absolute Nucleated RBC Nucleated RBC % ESR PT INR APTT D-Dimer Sodium Potassium Chloride Carbon Dioxide Anion Gap BUN Creatinine Estim Creat Clear Calc Estimated GFR Glucose Lactic Acid Calcium Total Bilirubin AST ALT Alkaline Phosphatase C-Reactive Protein Total Protein Albumin Urine Color Yellow Urine Appearance Clear Urine pH 6.5 Ur Specific [place] 1.033 Urine Protein Negative Urine Glucose (UA) Negative Urine Ketones Negative Ur Blood (Man) Negative Urine Nitrate Negative Urine Bilirubin Negative Urine Urobilinogen 0.2 Leukocyte Esterase Rfl Negative Quality VTE Prophylaxis VTE prophylaxis: pharmacologic ordered
[2024-04-27 14:00] VITALS: BP 121/57; PULSE 57; RESP 16; TEMP 36.9; O2SAT 90
[2024-04-27 20:43] VITALS: BP 109/55; PULSE 68; RESP 20; TEMP 36.4; O2SAT 95
[2024-04-27 21:49] VITALS: PULSE 68
[2024-04-28] MEDS: VANCOMYCIN 1,500 MG/NS 500 ML 1,500 MG/500 ML BAG 250 MG IVPB (02:53)
[2024-04-28] MEDS: ACETAMINOPHEN 500 MG TABLET 1000 MG PO ×2 (02:59→08:16)
[2024-04-28 05:28] VITALS: BP 146/65; PULSE 57; RESP 18; TEMP 36.7; O2SAT 98
[2024-04-28 07:00] LABS: Estimated CRCL calculation 74 ml/min; Estimated Glomerular Filt Rate > 60
[2024-04-28] MEDS: UMECLIDINIUM/VILANTEROL 62.5-25 MCG ELLIPTA 1 PUFF INHALATION (07:53)
[2024-04-28 08:00] VITALS: O2SAT 98
[2024-04-28] MEDS: PANTOPRAZOLE 40 MG TABLET PO ×2 (08:16→19:48)
[2024-04-28] MEDS: DULoxetine HCL 60 MG CAPSULE.DR PO (08:16)
[2024-04-28] MEDS: METOPROLOL TARTRATE 12.5 MG TABLET PO ×2 (08:16→19:48)
[2024-04-28] MEDS: ASPIRIN 81 MG CHEWABLE TABLET PO (08:16)
[2024-04-28] MEDS: GABAPENTIN 300 MG CAPSULE 600 MG PO ×2 (08:16→17:12)
[2024-04-28] MEDS: ENOXAPARIN 40 MG/0.4 ML SYRINGE SUB-Q (08:16)
[2024-04-28] MEDS: ISOSORBIDE MONONITRATE 30 MG TAB.ER.24H PO (08:16)
[2024-04-28] MEDS: ATORVASTATIN 40 MG TABLET PO (08:16)
[2024-04-28] MEDS: CLOPIDOGREL BISULFATE 75 MG TABLET PO (08:16)
--- NOTE | 2024-04-28 08:23 | P.PNIM_ITS ---
Progress Note: A&P Assessment and Plan (1) Cellulitis of right anterior lower leg: Code(s): L03.115 - Cellulitis of right lower limb Status: Acute Assessment and Plan: admit to regular medical floor patient started on vancomycin await cultures BC negative so far wbc normal, vs stable, wound is healing well- some erythema noted wound margins are marked-monitoring for improvement will downgrade to po antibiotics and monitor (2) Peripheral vascular disease: Code(s): I73.9 - Peripheral vascular disease, unspecified Status: Acute Assessment and Plan: a status post bypass grafting (3) Unilateral AKA: Code(s): S78.119A - Complete traumatic amputation at level between unspecified hip and knee, initial encounter Status: Acute Assessment and Plan: patient has been having recurrent falls PT OT consult- ordered (4) COPD with emphysema: Code(s): J43.9 - Emphysema, unspecified Status: Acute Assessment and Plan: not actively wheezing continue home meds Time Spent With Patient Time with patient: Greater than 35 minutes Subjective Date/time seen: 04/28/24 08:23 Interval history: Narrative retrieved from H/P: This is a 64-year-old male with past medical history significant for peripheral vascular disease, patient is status post bypass grafting to the right lower extremity 6 months ago, he also has a left AKA, patient presents to the emergency room due to redness tenderness swelling of the right lower extremity along graft site. Patient is not a very good historian has trouble remembering events to detail. Preliminary workup was lower yielding however imaging final official report is pending at the time of this dictation. Patient has been admitted for further evaluation management and treatment. 04/27- pt is seen and examined. Receiving IV antibiotics. He is resting with eyes closed. voices no complains. 04/28- seen and examined. VS reviewed and stable. pt/ot ordered- he states he doesnot need PT/OT as he is doing :fine but reports recent falls- agreeable to work with pt/ot while here. Reports some pain to LLE. Tylenol is not helping- wants to try something stronger. Review of Systems 2 Review of Systems: right lower extremities swelling, tenderness, redness along side graft site wound is healed. area is marked Exam Narrative: patient is laying in a stretcher Const: General: cooperative, comfortable, no acute distress, well developed, alert, awake and average body habitus Nutritional Appearance: average body habitus Orientation/consciousness: patient oriented x3 HENMT: Head: normal to inspection, normocephalic and atraumatic Ears: he aring grossly normal bilaterally Face/Nose/Sinus: normal facial exam Face and sinus: normal facial exam Eyes: General: appearance normal, both eyes and all related structures Pupils: Equal, round and reactive pupils present EOM: EOMs intact bilaterally Neck: Neck: full ROM, no lymphadenopathy and no JVD Thyroid: thyroid normal Lymphatic: no lymphadenopathy noted Resp: Effort & Inspection: normal respiratory effort and able to speak in complete sentences Auscultation: clear to auscultation bilaterally Cardio: Jugular venous distension: no JVD Rate: regular rate Rhythm: regular rhythm Heart sounds: S1 normal heart sound present and S2 normal heart sound present : General: Yes deferred Skin: General skin exam: wounds noted Rashes: no rashes Wounds: wounds noted right leg without odor and with surrounding erythema Other: stump with excoriations, wound to rt lower extr-healing Neuro: General: patient oriented x3, CN's II-XI intact bilaterally and Unable to assess gait Cranial nerves: Yes CN's II-XII intact bilaterally and Yes Equal, round and reactive pupils present Cognition (Neuro): normal cognition Speech: normal speech Gait exam (Neuro): Unable to assess gait Motor exam (neuro): 5/5 motor strength present throughout Other: patient has a left AKA Extrem: Right lower extremity: lower leg Details: erythema and other ( surgical wound on the medial aspect) Other: left AKA Objective Data Vital Signs Vital Signs: Vital Signs - 24 hr 04/27/24 08:45 04/27/24 14:00 04/27/24 20:43 Temperature 98.5 F 97.6 F Pulse Rate 57 L 68 Respiratory Rate 16 20 Blood Pressure 121/57 L 109/55 L Pulse Oximetry 96 90 95 Oxygen Delivery Room Air Fraction of Inspired Oxygen 21 04/27/24 21:49 04/28/24 05:28 Temperature 98.0 F Pulse Rate 68 57 L Respiratory Rate 18 Blood Pressure 146/65 H Pulse Oximetry 98 Oxygen Delivery Fraction of Inspired Oxygen Intake/Output Intake/Output: Intake & Output 04/25/24 04/26/24 04/27/24 04/28/24 23:59 23:59 23:59 23:59 Intake Total 2928 350 Output Total 800 1000 Balance 6013 -617 Meds/Results Medications: Active Medications Generic Name Dose Route Start Last Admin Trade Name Freq PRN Reason Stop Dose Admin Acetaminophen 1,000 mg 04/27/24 02:36 04/28/24 08:16 Acetaminophen 500 Mg Tablet PO 1,000 mg Q6H PRN Administration Mild Pain (1-3) or Fever Al Hydrox/Mg Hydrox/Simethicone 30 ml 04/27/24 02:36 Mag Hydrox/Al Hydrox/Simeth 30 Ml Udc PO Q6H PRN Indigestion Albuterol 2 puff 04/27/24 02:35 Albuterol Sulfate (*Sp) Aerosol 1 Puff INHALATION Q4HRT PRN Shortness Of Breath Aspirin 81 mg 04/27/24 09:00 04/28/24 08:16 Aspirin 81 Mg Chewable Tablet PO 81 mg DAILY ASHLEE Administration Atorvastatin Calcium 40 mg 04/27/24 09:00 04/28/24 08:16 Atorvastatin 40 Mg Tablet PO 40 mg DAILY ASHLEE Administration Clopidogrel Bisulfate 75 mg 04/27/24 09:00 04/28/24 08:16 Clopidogrel Bisulfate 75 Mg Tablet PO 75 mg DAILY ASHLEE Administration Duloxetine HCl 60 mg 04/27/24 09:00 04/28/24 08:16 Duloxetine Hcl 60 Mg Capsule.Dr PO 60 mg DAILY ASHLEE Administration Enoxaparin Sodium 40 mg 04/28/24 09:00 04/28/24 08:16 Enoxaparin 40 Mg/0.4 Ml Syringe SUB-Q 40 mg DAILY ASHLEE Administration Gabapentin 600 mg 04/27/24 09:00 04/28/24 08:16 Gabapentin 300 Mg Capsule PO 600 mg BID ASHLEE Administration Vancomycin HCl 1,500 mg in 500 mls @ 250 mls/hr 04/27/24 02:00 04/28/24 02:53 Vancomycin 1,500 Mg/Ns 500 Ml IVPB 250 mls/hr Q12H ASHLEE Administration Isosorbide Mononitrate 30 mg 04/27/24 09:00 04/28/24 08:16 Isosorbide Mononitrate 30 Mg Tab.Er.24h PO 30 mg DAILY ASHLEE Administration Metoprolol Tartrate 12.5 mg 04/27/24 09:00 04/28/24 08:16 Metoprolol Tartrate 12.5 Mg Tablet PO 12.5 mg Q12HR ASHLEE Administration Ondansetron HCl 4 mg 04/27/24 02:36 Ondansetron Inj 4 Mg/2 Ml Vial IV PUSH Q6H PRN Nausea And Vomiting Pantoprazole Sodium 40 mg 04/27/24 09:00 04/28/24 08:16 Pantoprazole 40 Mg Tablet PO 40 mg Q12HR ASHLEE Administration Polyethylene Glycol 17 gm 04/27/24 02:36 Polyethylene Glycol 3350 17 Gm Powd.Pack PO QAM PRN Constipation Umeclidinium/Vilanterol 1 puff 04/27/24 09:00 04/28/24 07:53 Umeclidinium/Vilanterol 62.5-25 Mcg Ellipta INHALATION 1 puff DAILY ASHLEE Administration Radiology Results: ITS Impressions Abdomen/Pelvis CT 04/27/24 05:22 Impression: No acute abnormality. Large right hydrocele. Mild emphysema at the lung bases. Tibia/Fibula X-Ray 04/27/24 05:35 Impression: No osseous or articular abnormality seen. Labs Labs: Laboratory Results - last 24 hr 04/28/24 06:12 Creatinine 0.90 Estim Creat Clear Calc 74 Estimated GFR > 60 Quality VTE Prophylaxis VTE prophylaxis: pharmacologic ordered
[2024-04-28 09:16] LABS: Hematocrit 33.4 % (42.0-52.0); Mean Corpuscular HGB Conc 29.9 g/dl (32-36); Mean Corpuscular Volume 80.1 fl (80-100); Mean Platelet Volume 9.8 fl (7.4-10.4); Platelet Count Result 327 k/mm3 (150-375); Red Blood Count 4.17 M/mm3 (4.6-6.20); Red Cell Distribution Width 17.1 % (11.5-14.5)
[2024-04-28] MEDS: HYDROcodone/acetaminophen (*CRX) 5-325 MG TABLET 1 TAB PO ×2 (09:35→17:14)
[2024-04-28 09:39] LABS: Anion Gap 6 mmol/L (4-12); Blood Urea Nitrogen 13 mg/dL (9-20); Calcium 8.7 mg/dL (8.4-10.2); Carbon Dioxide 26 mmol/L (22-30); Chloride 105 mmol/L (98-107); Estimated CRCL calculation 83 ml/min; Estimated Glomerular Filt Rate > 60; Glucose 121 mg/dL (65-110); Sodium 137 mmol/L (137-145)
[2024-04-28] MEDS: SULFAMETHOXAZOLE/TRIMETHOPRIM 800/160 MG DS TABLET 1 TAB PO ×2 (11:03→19:48)
[2024-04-28 13:57] VITALS: BP 148/62; PULSE 66; RESP 18; TEMP 36.2; O2SAT 93
[2024-04-28 19:48] VITALS: PULSE 72
[2024-04-28 21:18] VITALS: BP 127/43; PULSE 62; RESP 18; TEMP 36.2; O2SAT 97
[2024-04-29] MEDS: HYDROcodone/acetaminophen (*CRX) 5-325 MG TABLET 1 TAB PO ×2 (04:32→10:55)
[2024-04-29 04:57] VITALS: BP 150/75; PULSE 66; RESP 16; TEMP 36.6; O2SAT 98
[2024-04-29 06:26] LABS: Hematocrit 34.6 % (42.0-52.0); Hemoglobin 10.3 g/dL (14.0-18.0); Mean Corpuscular HGB Conc 29.8 g/dl (32-36); Mean Corpuscular Hemoglobin 23.7 pg (26-34); Mean Corpuscular Volume 79.7 fl (80-100); Mean Platelet Volume 9.4 fl (7.4-10.4); Platelet Count Result 346 k/mm3 (150-375); Red Blood Count 4.34 M/mm3 (4.6-6.20); White Blood Count 5.9 K/mm3 (4.5-10.0)
[2024-04-29 06:39] LABS: Anion Gap 4 mmol/L (4-12); Blood Urea Nitrogen 15 mg/dL (9-20); Calcium 8.7 mg/dL (8.4-10.2); Carbon Dioxide 26 mmol/L (22-30); Chloride 105 mmol/L (98-107); Estimated CRCL calculation 61 ml/min; Estimated Glomerular Filt Rate > 60; Glucose 101 mg/dL (65-110); Potassium 4.2 mmol/L (3.4-5.0); Sodium 135 mmol/L (137-145)
[2024-04-29] MEDS: UMECLIDINIUM/VILANTEROL 62.5-25 MCG ELLIPTA 1 PUFF INHALATION (08:45)
[2024-04-29 08:49] VITALS: O2SAT 95
[2024-04-29] MEDS: ACETAMINOPHEN 500 MG TABLET 1000 MG PO (09:09)
[2024-04-29] MEDS: CLOPIDOGREL BISULFATE 75 MG TABLET PO (09:10)
[2024-04-29] MEDS: ATORVASTATIN 40 MG TABLET PO (09:10)
[2024-04-29] MEDS: ASPIRIN 81 MG CHEWABLE TABLET PO (09:10)
[2024-04-29] MEDS: SULFAMETHOXAZOLE/TRIMETHOPRIM 800/160 MG DS TABLET 1 TAB PO (09:10)
[2024-04-29] MEDS: DULoxetine HCL 60 MG CAPSULE.DR PO (09:10)
[2024-04-29] MEDS: GABAPENTIN 300 MG CAPSULE 600 MG PO (09:10)
[2024-04-29] MEDS: METOPROLOL TARTRATE 12.5 MG TABLET PO (09:10)
[2024-04-29] MEDS: PANTOPRAZOLE 40 MG TABLET PO (09:10)
[2024-04-29] MEDS: ISOSORBIDE MONONITRATE 30 MG TAB.ER.24H PO (09:10)
[2024-04-29] MEDS: ENOXAPARIN 40 MG/0.4 ML SYRINGE SUB-Q (09:11)
[2024-04-29 14:00] VITALS: BP 128/48; PULSE 78; RESP 18; TEMP 36.1; O2SAT 94
--- NOTE | 2024-04-29 14:23 | P.DS_ITS ---
DS: Admitting Diagnosis Discharge Date 04/29/2024 Admitting Diagnosis cellulitis of right anterior lower leg peripheral vascular disease unilateral AKA COPD with emphysema DS: Discharge Diagnosis Discharge Diagnosis (1) Cellulitis of right anterior lower leg: Code(s): L03.115 - Cellulitis of right lower limb Status: Acute (2) Peripheral vascular disease: Code(s): I73.9 - Peripheral vascular disease, unspecified Status: Acute (3) Unilateral AKA: Code(s): S78.119A - Complete traumatic amputation at level between unspecified hip and knee, initial encounter Status: Acute (4) COPD with emphysema: Code(s): J43.9 - Emphysema, unspecified Status: Acute DS: Summary Hospital Course Reason for hospitalization: cellulitis of right anterior lower leg peripheral vascular disease unilateral AKA COPD with emphysema Hospital Course: 64-year-old male with past medical history peripheral vascular disease status post bypass grafting to the right lower extremity 6 months ago and a left AKA who presents to the hospital for redness tenderness and swelling of the right lower extremity along graft site. He also endorses multiple falls with the mo recent 1 being 2 nights ago where he struck his left flank/ back /abdomen. On admission patient was not meeting sepsis criteria. and abdomen pelvis CT was performed and showed no acute abnormality. A right tibia/ fibula x-ray was performed and showed no osseous or articular abnormality. Patient was started on IV antibiotics for cellulitis to his graft site. The wound continued to improve and patient was transitioned to p.o. Bactrim. During his admission he worked with physical therapy and occupational therapy who recommended home health however patient refused stating he has caretakers at his home due to a sister that will be able to help him. At time of discharge patient had no complaints denying chest pain, shortness a breath, nausea /vomiting, and abdominal pain. His wound has significantly improved and was no longer red/swollen/painful. Patient discharged home in a stable condition. He is to complete his antibiotics as prescribed and follow-up with his primary care provider in 1 week. Given the information for the on-call primary care provider. Patient also noted that he did not have any of his home medications refilled so no prescriptions were sent to his pharmacy. Status at Discharge Functional status at discharge: uses cane/walker Time Spent with Patient Time attestation: Total time spent providing and/or coordinating discharge services: Time spent: Greater than 30 minutes Exam Narrative: AF HR 78 RR 18 SpO2 94 BP 128/48 General: male in no acute respiratory distress who is nontoxic appearing, lying semi recumbent in bed. HEENT: Normocephalic. Atraumatic. Extraocular movement intact. Sclera clear and anicteric.. No facial asymmetry. Chest: Lungs are clear to auscultation bilaterally. No wheezes or crackles. CV: Heart was regular rate and rhythm. S1/S2. No murmurs, gallops, or rubs. Abd: Abdomen was soft. Nontender. Nondistended. Postive bowel sounds. No organomegaly or masses. Ext: Left AKA with small well-healing wound to the bottom of the limb with no noted discharge. Right lower extremity his large vertical surgical wound to the medial aspect of the limb with no noted redness, swelling, or discharge. Slight pain with palpation. Neuro: Patient is alert and oriented x4. Cranial nerves 2-12 are intact. Speech is clear. DS: Data Data Completed and Pending Completed studies during hospitalization: tibia/ fibula x-ray abdomen pelvis CT Labs on day of discharge: Labs from last 24 hours 04/29/24 05:43 WBC 5.9 RBC 4.34 L Hgb 10.3 L Hct 34.6 L MCV 79.7 L MCH 23.7 L MCHC 29.8 L RDW 17.0 H Plt Count 346 MPV 9.4 Sodium 135 L Potassium 4.2 Chloride 105 Carbon Dioxide 26 Anion Gap 4 BUN 15 Creatinine 1.10 Estim Creat Clear Calc 61 Estimated GFR > 60 Glucose 101 Calcium 8.7 Preliminary micro results at discharge 04/26/24 22:30 Aerobic Culture - Preliminary Leg Right Staphylococcus aureus 04/26/24 22:17 Blood Culture - Preliminary Blood 04/26/24 22:17 Blood Culture - Preliminary Blood Discharge Plan Discharge Attending physician on discharge: Chica Bond Discharging Clinician: Cathy Navarrete Anticipated Discharge Date/Time: 04/29/24 14:17 Patient Disposition: Home, Self-Care Activity: as tolerated Diet: as tolerated and heart healthy Discharge Instructions: Discharge disposition: Patient admitted to the hospital for cellulitis to the lower limb which grew staph Started on IV antibiotics and transitioned to oral during admission Take medication as prescribed even if feeling better Bactrim course to be completed on 05/06. Attached is information on this medication Monitor the limb for worsening redness, swelling, pain, drainage Patient states that he did not have any of his home medications due to losing his primary care provider New prescriptions for his home medications have been sent Patient given information for the on-call PCP at [facility] Discussed with patient he is to follow up with his new primary care provider in 1 week Monitor blood pressures Take caution while standing, rising, or moving Change positions slowly taking a break between each position change If you standing feel dizzy sat back down and take a break Eat well balanced meals and stay hydrated Strict bleeding precautions since you are on Plavix including shaving with an electric razor, holding pressure for greater than 20 minutes for injury, protection of had with any falls, etc. Encouraged to continue with yearly vaccinations Return to the emergency department if he developed sudden shortness of breath, chest pain, nausea, vomiting, upset stomach or intractable diarrhea Return to the emergency department if you develop fever greater than 101.5 Follow-up with the primary care physician within 1-2 weeks Thank you for choosing [facility] for your healthcare needs Patient Instructions: Antibiotic Form, Sulfamethoxazole/Trimethoprim (By mouth), Rivaroxaban (By mouth), Cellulitis (GEN), Pain Management (DC) Patient Language: Kiswahili Stand Alone Forms: General Discharge Information Follow-up/Referrals: Darrius Shaffer MD [Physician] - 1 Week UNKNOWN,DOCTOR [Primary Care Provider] - 1 Week Discharge Medications: New sulfamethoxazole-trimethoprim 800-160 mg Tablet 1 tab PO Q12HR Qty: 15 0RF hydrocodone-acetaminophen 5-325 mg tablet 1 tablet PO Q6H PRN (Reason: pain) Qty: 5 0RF Continued aspirin 81 mg tablet,chewable 81 mg PO DAILY albuterol sulfate 90 mcg/actuation HFA aerosol inhaler 2 puff INHALATION Q4H PRN (Reason: SOB) Anoro Ellipta 62.5-25 mcg/actuation blister with device 1 inh INHALATION DAILY atorvastatin 40 mg tablet 40 mg PO DAILY Qty: 30 0RF gabapentin 600 mg tablet 600 mg PO BID Qty: 60 0RF isosorbide mononitrate 30 mg tablet extended release 24 hr 30 mg PO DAILY Qty: 30 0RF potassium chloride 10 mEq tablet extended release 10 meq PO DAILY Qty: 30 0RF clopidogrel 75 mg tablet 75 mg PO BID Qty: 60 0RF pantoprazole 40 mg tablet,delayed release (DR/EC) 40 mg PO BID Qty: 30 0RF metoprolol tartrate 25 mg tablet 25 mg PO DAILY Qty: 30 0RF duloxetine 60 mg capsule,delayed release(DR/EC) 60 mg PO DAILY Qty: 30 0RF Date of admission: 04/27/24 09:34 Primary Care Provider: UNKNOWN,DOCTOR Admitting Provider: Asif Bhat V. Attending physician on admission: Cathy Navarrete Condition: Stable Hospitalist MIPS Heart Failure (Exclusion) Patient has history of Heart Transplant or Left Ventricular Assistive Device?: No IF YES, STOP HERE Heart Failure (Qualifier) Patient has current or prior documentation of LVEF less than or equal to 40%, or mod/servere depressed LVSF?: No IF NO, STOP HERE
== END 2024-04-29 15:45 | disposition home or self-care (01) ==
LOC: ANHED 22:24 → ANH3MEDSUR 04-27 01:46
PROVIDERS: Emergency Medicine; Nurse Practitioner; Admitting Provider Internal Medicine; Emergency Provider Student in an Organized Health Care Education/Training Program; Visit Provider Student in an Organized Health Care Education/Training Program
DX: L03.115 Cellulitis of right lower limb (principal); I73.9 Peripheral vascular disease, unspecified; B95.8 Unspecified staphylococcus as the cause of diseases classified elsewhere; Z95.828 Presence of other vascular implants and grafts; Z89.612 Acquired absence of left leg above knee; J43.9 Emphysema, unspecified; F17.210 Nicotine dependence, cigarettes, uncomplicated; R70.0 Elevated erythrocyte sedimentation rate; R79.82 Elevated C-reactive protein (CRP); D50.9 Iron deficiency anemia, unspecified; R29.6 Repeated falls; Z79.01 Long term (current) use of anticoagulants; Z79.51 Long term (current) use of inhaled steroids; Z79.82 Long term (current) use of aspirin; Z79.899 Other long term (current) drug therapy
CPT/HCPCS: 36415; 73590; 74177; 80048; 80053; 81003; 82565; 83605; 85025; 85027; 85380; 85610; 85652; 85730; 86140; 87040; 87070; 87181; 87205; 94640; 96365; 96366; 96372; 97161; 97165; 99212; 99285; A9270; G0378; G0379; G0463; J1650; J3370; Q9967

== ENCOUNTER 2024-05-28 11:26 | Emergency (ER) | payer OTHER, SELFPAY ==
[2024-05-28] VITALS (7 sets, daily range): BP systolic 127–210; BP diastolic 65–69; PULSE 67–102; RESP 15–22; TEMP 36.2; O2SAT 93–100
--- NOTE | 2024-05-28 12:04 | ED.WOUNDLAC ---
HPI - Wound/Laceration General Chief Complaint: Wound/Laceration Stated Complaint: leg infection Time Seen by Provider: 05/28/24 12:01 Source: patient Limitations: no limitations History of Present Illness HPI narrative: Patient presents with concern for a leg infection. He had a left qoror-jqp-cdqd amputation performed 2 years ago (started at [facility] and then transferred to [facility]) and also a procedure on the right leg performed in [place]. At his amputation stump a experiences a burning sensation that has been draining clear fluid for 1 week. He has had subjective fevers at home. He has a history of cellulitis. He states he has not been on any antibiotics in a while since he was last in the hospital. He also states he is supposed to be taking anticoagulation as he has a history of a DVT in a leg he has been missing several of his pharmaceuticals because my meds are messed up. Related Data Home Medications ?Medication ?Instructions ?Recorded ?Confirmed ?Last Taken ?Type umeclidinium 62.5 mcg-vilanterol 1 inh inhalation DAILY 04/27/24 05/28/24 Unknown History 25 mcg/actuation powdr for inhalation (Anoro Ellipta) Allergies Allergy/AdvReac Type Severity Reaction Status Date / Time No Known Allergies Allergy Verified 03/30/24 18:58 [facility] Past Medical History Medical History Peripheral vascular disease History of COPD History of cellulitis Surgical History Surgical History (Updated 05/29/24 @ 08:20 by Maria Esther Rodriguez MD) History of left above knee amputation [facility] -> [facility]; approx 2021 H/O vascular surgery Right, [place] Social History Social History (Updated 05/29/24 @ 08:21 by Maria Esther Rodriguez MD) Smoking packs per day: 1 Smoking cigarettes per day: 20.0 Years smoked: 20 Smoking pack-years: 20.00 Smoking status: Current every day smoker Substance use type: does not use Do You Feel Safe in your Home?: Yes Lack of Transportation: YES Lack of Food: Sometimes True Current Housing: I Have Housing Concerned About Future Housing: No Difficulty Paying Gas/Electric Bills: No Difficulty Paying for Meds: YES Currently Unemployed: No Education: Grade School Difficulty w/ Childcare or Family Care: No Living arrangements: with family Additional living arrangements comments: sister Spiritual care concerns: No Exam Narrative: GENERAL: well-nourished, and in no acute distress. HEAD: Normocephalic, atraumatic. EYES: Non injected, non icteric ENT: Nares clear, no rhinorrhea or epistaxis. NECK: Supple. CHEST: Speaking in full sentences. No respiratory distress. HEART: Regular rate and rhythm . ABDOMEN: Protuberant but Soft, nondistended. EXTREMITIES: Normal range of motion. No lower extremity edema. Left ldxil-nss-qxds amputation a small 2 x 1 cm wound at distal stump with serous drainage as well he scab. Also some smaller wounds along the medial thigh also has some erythema. Long open but otherwise well-healing scar along the medial aspect of right leg with some surrounding erythema. The open portion measures 12 cm in length and has the rest of a linear scar that is proximal to this and well-healing. SKIN: Warm, dry. Small areas of ecchymosis along right medial distal thigh. NEURO: No focal deficits. Alert and oriented x3. PSYCH: Normal mood and affect. Course Vital Signs Vital signs: Vital Signs Temperature 97.2 F L 05/28/24 11:30 Pulse Rate 102 H 05/28/24 11:30 Respiratory Rate 18 05/28/24 11:30 Blood Pressure 210/65 H 05/28/24 11:30 Pulse Oximetry 93 05/28/24 11:30 Temperature 97.2 F L 05/28/24 11:30 Pulse Rate 68 05/28/24 16:32 Respiratory Rate 18 05/28/24 16:32 Blood Pressure 144/65 H 05/28/24 16:32 Pulse Oximetry 99 05/28/24 16:32 MDM - Wound/Laceration MDM Narrative Medical decision making narrative: Patient presents with concern for leg infection. He has a history of a left zgwqm-ssa-ifyg amputation which he describes as having a redness and burning with some clear drainage for the past 1 week associated with subjective fevers at home. He also has a longstanding wound that has been slow healing located along the right medial aspect his leg. In the emergency department he is afebrile with vital signs notable for mild tachycardia as well as significant hypertension. On physical exam, there does appear to be some small areas of cellulitis as there is some nondescript erythema that surrounds some of his wounds. In general, however the wounds look markedly improved from how they appeared when he presented a month ago. Patient notes that he has not been taking any of his medications because there has been an issue with the pharmacy. Reviewed prior note which listed a pharmacy he previously went to when he lived elsewhere as well as the pharmacy he uses locally. These were both contacted. [facility] confirms the following medications: Lopressor 25mg once daily - 0 refills potassium Cl 10mEq once daily Duloxetine 60mg once daily Imdur 30mg once daily All written 05/04/2024 Gabapentin 600mg BID atorvastatin 40mg (not picked up) once daily - x1 refill available pantoprazole 40mg BID albuterol 2 puffs every 4 At the time antibiotic and pain medication as well Clopidogrel and aspirin have refills available (x1) [facility] in [place] fax list of medications as follows: Clopidogrel 75 mg by mouth once daily dispensed 02/14/2024 Xarelto 2.5 mg tablet by mouth 2 times daily dispensed 02/14/2024 Anoro Ellipta inhale 1 puff by mouth once daily dispensed 02/14/2024 Albuterol HFA inhaler Ventolin inhale 2 puffs by mouth every 4 hours as needed dispensed 02/14/2024 Pantoprazole 40 mg by mouth twice daily filled 02/25/24 Gabapentin 600 mg by mouth twice daily filled 02/25/24 Duloxetine 60 mg by mouth once daily filled 02/25/24 Metoprolol tartrate 25mg (take one half tablet by mouth twice daily) filled 02/25/24 potassium CHl 10mEq tablet by mouth once daily filled 02/25/24 Isosorbide mono tab 30mg ER one tablet by mouth once daily filled 02/25/24 Patient given a dose of several of his medications as well as a 1 time dose of [place] while in the emergency department. I do believe patient would benefit from antibiotic therapy for another treatment of cellulitis and will provide double coverage given reported history of staph infections. Patient had a previous history of DVT by stated report and had been on Xarelto previously while living elsewhere. The study has been performed in March and was negative. His D-dimer is negative today. Patient's the hypertension and tachycardia have resolved his vital signs are now within normal limits. Stable for discharge. Patient is provided a 30 day supply his medications and advised care provider for continued management refills of his medications. He is provided a referral contact information for local doctor. He is also admission for [facility]. Differential Diagnosis Differential diagnosis: Likely other (Cellulitis, abscess, DVT) Medical Records Attestation: I reviewed the patient's medical records. Medical records narrative: From Previous ED visit in March: Patient presents with concern for an infection in his stub ; he has a left ikrdq-zfg-gavu amputation. He also is experiencing a burning sensation. In addition he has pain in his right leg. He denies any fevers but he does state that he has been having a ' fever in my leg. Denies any phantom pain. Patient had a previous vein graft surgery performed in [place]. He also a procedure done in [place]. He had a doctor named Dr. Reece at 1 time. He denies any chest pain. He has been taking Tylenol and ibuprofen 2 or 3 times per day. He has been walking on his right leg but not now do a symptoms. The left leg amputation was performed 2 years ago. Approximately 6 months ago he had a vascular surgery procedure on the right. He was initially at [facility] but then transferred to [facility]. He has not followed up for several of his appointments because he moved. He notes that he had multiple staph infections. He is also concerned because he is out of his medications and a blood thinner (does not know which 1) and his blood pressure medication. He does not know any of these medications though he states the last time they were filled was at [facility] in [facility] as well as some at [facility] in [place]. He also previously min to a wound clinic in [place] the last time he was there was 2 months ago. He states that the right leg has chronically been open since his procedure and is not healing. Lab Data Attestation: I reviewed the patient's lab results. Lab results narrative: Microcytic anemia, stable from previous. Very slight thrombocytosis, previously seen and then with resolution 05/28/24 12:36 05/28/24 12:36 Labs: Lab Results 05/28/24 Range/Units 12:36 WBC 7.1 (4.5-10.0) K/mm3 RBC 4.40 L (4.6-6.20) M/mm3 Hgb 10.5 L (14.0-18.0) g/dL Hct 34.6 L (42.0-52.0) % MCV 78.6 L (80-100) fl MCH 23.9 L (26-34) pg MCHC 30.3 L (32-36) g/dl RDW 16.9 H (11.5-14.5) % Plt Count 389 H (150-375) k/mm3 MPV 9.4 (7.4-10.4) fl Immature Gran % (Auto) 0.4 (0-0.5) % Neut % (Auto) 73.1 (45.5-73.1) % Lymph % (Auto) 11.1 L (18.3-44.2) % [place] % (Auto) 12.1 H (2.6-8.5) % Eos % (Auto) 3.0 (0-4.4) % Baso % (Auto) 0.3 (0.2-1.2) % Lymph # (Auto) 0.79 L (0.9-3.2) K/mm3 [place] # (Auto) 0.9 H (0.1-0.6) K/mm3 Eos # (Auto) 0.2 (0-0.3) K/mm3 Baso # (Auto) 0.0 (0.0-0.1) K/mm3 Abs Immat Gran (auto) 0.03 (0.00-0.031) K/mm3 Absolute Neuts (auto) 5.2 (1.3-6.7) K/mm3 Absolute Nucleated RBC 0.000 (0.0-0.012) K/mm3 Nucleated RBC % 0.0 (0.0-0.2) % PT 12.6 (11.1-14.7) Seconds INR 0.9 APTT 25.8 (22.3-36.8) Seconds D-Dimer 0.34 (<0.48) ug/mL Sodium 136 L (137-145) mmol/L Potassium 3.7 (3.4-5.0) mmol/L Chloride 102 (98-107) mmol/L Carbon Dioxide 28 (22-30) mmol/L Anion Gap 6 (4-12) mmol/L BUN 18 (9-20) mg/dL Creatinine 0.90 (0.7-1.3) mg/dL Estim Creat Clear Calc Not Reportable Estimated GFR > 60 (59 - ) Glucose 119 H (65-110) mg/dL Calcium 9.1 (8.4-10.2) mg/dL Magnesium 2.1 (1.6-2.3) mg/dL Total Bilirubin 0.3 (0.2-1.3) mg/dL AST 24 (17-59) U/L ALT 16 (6-50) U/L Alkaline Phosphatase 130 H (38-126) U/L Total Protein 8.0 (6.3-8.2) g/dL Albumin 4.2 (3.5-5.1) g/dL Discharge Plan Discharge Clinical Impression: Leg wound, left, Leg wound, right, Microcytic anemia, Thrombocytosis, Encounter for medication refill Patient Disposition: Home, Self-Care Condition: Stable Instructions: Antibiotic Form, Anemia (ED), Chronic Wounds (ED) Additional Instructions: Although you previously had evidence of a blood clot in your leg(s), this does not appear to be the case now so you do not need to be on blood thinners any longer. After discussing with your pharmacy in [place] and the [facility] in [place], it appears you don't have refills of some of them so a 30 day supply has been prescribed until you can follow up with the primary care provider listed below. It is very important that you see a doctor in the outpatient setting (either them or an alternative provider) to maintain this relationship to manage your chronic conditions. The wound care clinic is below if you do not want/can not re-establish with [facility]. Patient Language: Estonian Prescriptions: New cephalexin 500 mg capsule 500 mg PO Q8H 5 Days Qty: 15 0RF sulfamethoxazole-trimethoprim [Bactrim DS] 800-160 mg tablet 1 tablet PO Q12H 5 Days Qty: 10 0RF umeclidinium-vilanterol 62.5-25 mcg/actuation blister with device 1 inh inhalation Q24H Qty: 14 0RF aspirin 81 mg tablet,chewable 81 mg PO DAILY Qty: 30 0RF gabapentin 600 mg tablet 600 mg PO BID 30 Days Qty: 60 0RF metoprolol tartrate 25 mg tablet 25 mg PO BID 30 Days Qty: 60 0RF pantoprazole 40 mg tablet,delayed release (DR/EC) 40 mg PO BID 30 Days Qty: 60 0RF potassium chloride 10 mEq capsule, extended release 10 meq PO DAILY 30 Days Qty: 30 0RF albuterol sulfate 90 mcg/actuation HFA aerosol inhaler 1 inh inhalation QID PRN (Reason: shortness of breath or wheezing) Qty: 6.7 0RF atorvastatin 40 mg tablet 40 mg PO HS 30 Days Qty: 30 0RF clopidogrel 75 mg tablet 75 mg PO DAILY 30 Days Qty: 30 0RF duloxetine 60 mg capsule,delayed release(DR/EC) 60 mg PO DAILY Qty: 30 0RF isosorbide mononitrate 30 mg tablet extended release 24 hr 30 mg PO DAILY Qty: 30 0RF No Action Anoro Ellipta 62.5-25 mcg/actuation blister with device 1 inh INHALATION DAILY sulfamethoxazole-trimethoprim 800-160 mg Tablet 1 tab PO Q12HR Qty: 15 0RF hydrocodone-acetaminophen 5-325 mg tablet 1 tablet PO Q6H PRN (Reason: pain) Qty: 5 0RF atorvastatin 40 mg tablet 40 mg PO DAILY Qty: 30 0RF gabapentin 600 mg tablet 600 mg PO BID Qty: 60 0RF isosorbide mononitrate 30 mg tablet extended release 24 hr 30 mg PO DAILY Qty: 30 0RF potassium chloride 10 mEq tablet extended release 10 meq PO DAILY Qty: 30 0RF clopidogrel 75 mg tablet 75 mg PO BID Qty: 60 0RF pantoprazole 40 mg tablet,delayed release (DR/EC) 40 mg PO BID Qty: 30 0RF aspirin 81 mg tablet,chewable 81 mg PO DAILY Qty: 30 0RF albuterol sulfate 90 mcg/actuation HFA aerosol inhaler 2 puff INHALATION Q4H PRN (Reason: SOB) Qty: 6.7 0RF metoprolol tartrate 25 mg tablet 25 mg PO DAILY Qty: 30 0RF duloxetine 60 mg capsule,delayed release(DR/EC) 60 mg PO DAILY Qty: 30 0RF Follow-up/Referrals: [facility] [Other] Anup Zamora MD [Physician] - UNKNOWN,DOCTOR [Primary Care Provider] - Stand Alone Forms: Work/School Release IP Time of Disposition: 16:01
[2024-05-28 12:42] LABS: Basophils Percent Auto 0.3 % (0.2-1.2); Eosinophils Absolute Auto 0.2 K/mm3 (0-0.3); Hematocrit 34.6 % (42.0-52.0); Hemoglobin 10.5 g/dL (14.0-18.0); Immature Granulocyte Absolute 0.03 K/mm3 (0.00-0.031); Immature Granulocyte Percent A 0.4 % (0-0.5); Lymphocytes Absolute Auto 0.79 K/mm3 (0.9-3.2); Lymphocytes Percent Auto 11.1 % (18.3-44.2); Mean Corpuscular HGB Conc 30.3 g/dl (32-36); Mean Corpuscular Hemoglobin 23.9 pg (26-34); Mean Corpuscular Volume 78.6 fl (80-100); Mean Platelet Volume 9.4 fl (7.4-10.4); Monocytes Absolute Auto 0.9 K/mm3 (0.1-0.6); Monocytes Percent Auto 12.1 % (2.6-8.5); Neutrophils Absolute Auto 5.2 K/mm3 (1.3-6.7); Neutrophils Percent Auto 73.1 % (45.5-73.1); Platelet Count Result 389 k/mm3 (150-375); Red Cell Distribution Width 16.9 % (11.5-14.5); White Blood Count 7.1 K/mm3 (4.5-10.0)
[2024-05-28 12:54] LABS: Alanine Aminotransferase 16 U/L (6-50); Albumin Level 4.2 g/dL (3.5-5.1); Alkaline Phosphatase 130 U/L (38-126); Anion Gap 6 mmol/L (4-12); Aspartate Amino Transferase 24 U/L (17-59); Bilirubin,Total 0.3 mg/dL (0.2-1.3); Blood Urea Nitrogen 18 mg/dL (9-20); Calcium 9.1 mg/dL (8.4-10.2); Carbon Dioxide 28 mmol/L (22-30); Chloride 102 mmol/L (98-107); Estimated Glomerular Filt Rate > 60; Glucose 119 mg/dL (65-110); Magnesium 2.1 mg/dL (1.6-2.3); Potassium 3.7 mmol/L (3.4-5.0); Sodium 136 mmol/L (137-145)
[2024-05-28 13:01] LABS: INR 0.9; Partial Thromboplastin Time 25.8 Seconds (22.3-36.8); Prothrombin Time 12.6 Seconds (11.1-14.7)
[2024-05-28] MEDS: HYDROcodone/acetaminophen (*CRX) 5-325 MG TABLET 1 TAB PO (13:02)
[2024-05-28] MEDS: METOPROLOL TARTRATE 25 MG TABLET PO (13:50)
[2024-05-28] MEDS: ISOSORBIDE MONONITRATE 10 MG TABLET 30 MG PO (13:51)
[2024-05-28] MEDS: GABAPENTIN 300 MG CAPSULE 600 MG PO (13:51)
[2024-05-28] MEDS: DULoxetine HCL 60 MG CAPSULE.DR PO (13:52)
[2024-05-28] MEDS: CEPHALEXIN 500 MG CAPSULE PO (15:14)
[2024-05-28] MEDS: SULFAMETHOXAZOLE/TRIMETHOPRIM 800/160 MG DS TABLET 1 TAB PO (15:14)
[2024-05-28 15:24] LABS: D Dimer 0.34 ug/mL (<0.48)
== END 2024-05-28 16:34 | disposition home or self-care (01) ==
PROVIDERS: Emergency Provider Student in an Organized Health Care Education/Training Program
DX: S81.802A Unspecified open wound, left lower leg, initial encounter (principal); S81.801A Unspecified open wound, right lower leg, initial encounter; Z89.612 Acquired absence of left leg above knee; Z86.718 Personal history of other venous thrombosis and embolism; F17.210 Nicotine dependence, cigarettes, uncomplicated; D50.9 Iron deficiency anemia, unspecified; D75.839 Thrombocytosis, unspecified; Z76.0 Encounter for issue of repeat prescription
CPT/HCPCS: 36415; 80053; 83735; 85025; 85380; 85610; 85730; 87070; 87186; 87205; 99281; A9270

== ENCOUNTER 2024-06-12 01:17 | Emergency (ER) | payer OTHER, SELFPAY ==
--- NOTE | ~2024-06-12 | CT_ITS ---
EXAMINATION: CT femur LT w con DATE: 06/12/2024 07:59 INDICATION: Left lower limb stump wound. TECHNIQUE: Computed tomography (CT) of the left femur was performed with 100 mL Omnipaque 350 intrave nous contrast. Automated exposure control and iterative reconstruction technique were employed. The d ose-length product was 892.89 mGy-cm. COMPARISON: CT abdomen and pelvis 04/26/2024 FINDINGS: There is a left above-knee amputation. There is irregularity of the distal end of the bone without definite acute erosions. There is moderate left hip osteoarthritis. There is a patent stent i n right external iliac artery. There is a stent in left external iliac artery with distal thrombosis. There is a discontinuous bypass graft in the anterior pelvic subcutaneous fat. There is a thrombosed stent in left superficial femoral artery. There is a thrombosed graft in left thigh. There is a larg e right hydrocele. There is a small left hydrocele. IMPRESSION: 1. No specific evidence of osteomyelitis. Reviewed, dictated and finalized at location A. NG SUPERVISOR
[2024-06-12 01:19] VITALS: BP 175/82; PULSE 80; RESP 18; TEMP 36.2; O2SAT 100
[2024-06-12 03:39] VITALS: BP 145/67; PULSE 88; RESP 18; O2SAT 98
[2024-06-12 07:18] LABS: Basophils Percent Auto 0.4 % (0.2-1.2); Eosinophils Absolute Auto 0.2 K/mm3 (0-0.3); Eosinophils Percent Auto 2.4 % (0-4.4); Hematocrit 35.4 % (42.0-52.0); Hemoglobin 10.6 g/dL (14.0-18.0); Immature Granulocyte Absolute 0.02 K/mm3 (0.00-0.031); Immature Granulocyte Percent A 0.3 % (0-0.5); Lymphocytes Percent Auto 11.5 % (18.3-44.2); Mean Corpuscular HGB Conc 29.9 g/dl (32-36); Mean Corpuscular Hemoglobin 23.2 pg (26-34); Mean Corpuscular Volume 77.6 fl (80-100); Mean Platelet Volume 9.4 fl (7.4-10.4); Monocytes Percent Auto 13.8 % (2.6-8.5); Neutrophils Percent Auto 71.6 % (45.5-73.1); Platelet Count Result 385 k/mm3 (150-375); Red Blood Count 4.56 M/mm3 (4.6-6.20); Red Cell Distribution Width 17.3 % (11.5-14.5)
[2024-06-12 07:28] LABS: Alanine Aminotransferase 14 U/L (6-50); Albumin Level 4.2 g/dL (3.5-5.1); Alkaline Phosphatase 136 U/L (38-126); Anion Gap 3 mmol/L (4-12); Aspartate Amino Transferase 26 U/L (17-59); Bilirubin,Total 0.4 mg/dL (0.2-1.3); Blood Urea Nitrogen 12 mg/dL (9-20); Calcium 9.2 mg/dL (8.4-10.2); Carbon Dioxide 26 mmol/L (22-30); Chloride 106 mmol/L (98-107); Estimated Glomerular Filt Rate > 60; Glucose 114 mg/dL (65-110); Potassium 3.8 mmol/L (3.4-5.0); Sodium 135 mmol/L (137-145)
--- NOTE | 2024-06-12 07:30 | ED_ITS ---
HPI - General Adult General Chief complaint: Wound/Laceration Stated complaint: infection left knee amputation Time Seen by Provider: 06/12/24 06:56 History of Present Illness HPI narrative: [age] male present to the emergency department for evaluation for left stump pain. 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 Patient states approximately 2 weeks ago he did have a fall and injured his left stump. Patient states over the last 2 weeks he has had worsening wound the distal aspect of the left stump. Related Data Home Medications ?Medication ?Instructions ?Recorded ?Confirmed ?Last Taken ?Type umeclidinium 62.5 mcg-vilanterol 1 inh inhalation DAILY 04/27/24 05/28/24 Unknown History 25 mcg/actuation powdr for inhalation (Anoro Ellipta) Allergies Allergy/AdvReac Type Severity Reaction Status Date / Time No Known Allergies Allergy Verified 03/30/24 18:58 Review of Systems 2 Review of Systems: All systems reviewed & are unremarkable except as noted in HPI and below PMFSH Past Medical History Medical History Peripheral vascular disease History of COPD History of cellulitis Surgical History Surgical History (Updated 05/29/24 @ 08:20 by Maria Esther Rodriguez MD) History of left above knee amputation [facility] [place]; approx [facility] Social [facility] Social History (Updated 05/29/24 @ 08:21 by Maria Esther Rodriguez MD) Smoking packs per day: 1 Smoking cigarettes per day: 20.0 Years smoked: 20 Smoking pack-years: 20.00 Smoking status: Current every day smoker Substance use type: does not use Do You Feel Safe in your Home?: Yes Lack of Transportation: YES Lack of Food: Sometimes True Current Housing: I Have Housing Concerned About Future Housing: No Difficulty Paying Gas/Electric Bills: No Difficulty Paying for Meds: YES Currently Unemployed: No Education: Grade School Difficulty w/ Childcare or Family Care: No Living arrangements: with family Additional living arrangements comments: sister Spiritual care concerns: No Exam 2 Narrative: APPEARANCE: Well appearing, no pain, no distress, well-nourished. HEAD: normocephalic, atraumatic. EYES: PERRLA/EOMI, conjunctivae clear. NOSE: Normal no drainage EARS:TMS clear with good light reflex. THROAT: Pharynx clear, no exudate. NECK: Supple. No adenopathy, no masses. RESPIRATORY: Airway patent, respirations nonlabored. Clear to auscultation bilaterally, no rales, rhonchi, wheezing. CARDIOVASCULAR: Regular rate and rhythm without murmurs rubs or gallops. ABDOMINAL: Soft, nontender, nondistended, normal bowel sounds MUSCULOSKELETAL: Chronic wound at the distal and of left stump, minor erythema with no significant cellulitis NEURO: Alert. Cranial nerves II through XII intact. Good gait. Good coordination SKIN: Warm, dry. Normal Color Course Vital Signs Vital signs: Vital Signs Temperature 97.2 F L 06/12/24 01:19 Pulse Rate 80 06/12/24 01:19 Respiratory Rate 18 06/12/24 01:19 Blood Pressure 175/82 H 06/12/24 01:19 Pulse Oximetry 100 06/12/24 01:19 Oxygen Delivery Room Air 06/12/24 01:19 Temperature 98.0 F 06/12/24 08:37 Pulse Rate 85 06/12/24 08:37 Respiratory Rate 20 06/12/24 08:37 Blood Pressure 185/84 H 06/12/24 08:37 Pulse Oximetry 100 06/12/24 08:37 Oxygen Delivery Room Air 06/12/24 01:19 Medical Decision Making [facility] Narrative Medical decision making narrative: [age] old male presents emergency department for evaluation for infection to the distal left stone. No active drainage from the wound, mild cellulitis of the left arm, no evidence osteomyelitis on CT scan. Patient is afebrile with no leukocytosis and hemoglobin of 10.6, no acute abnormalities on the patient's CMP. Patient was started on doxycycline emergency department. Patient was discharged home on doxy. Patient was encouraged of close follow-up with primary care physician. All questions concerns were addressed. Differential Diagnosis Differential Diagnosis: Osteomyelitis, cellulitis, abscess, contusion Vital Signs Vital Signs: Vital Signs Temperature 97.2 F L 06/12/24 01:19 Pulse Rate 80 06/12/24 01:19 Respiratory Rate 18 06/12/24 01:19 Blood Pressure 175/82 H 06/12/24 01:19 Pulse Oximetry 100 06/12/24 01:19 Oxygen Delivery Room Air 06/12/24 01:19 Temperature 98.0 F 06/12/24 08:37 Pulse Rate 85 06/12/24 08:37 Respiratory Rate 20 06/12/24 08:37 Blood Pressure 185/84 H 06/12/24 08:37 Pulse Oximetry 100 06/12/24 08:37 Oxygen Delivery Room Air 06/12/24 01:19 Lab Data Lab results reviewed: Yes I reviewed the patient's lab results. 06/12/24 07:12 06/12/24 07:12 Labs: Lab Results 06/12/24 Range/Units 07:12 WBC 7.0 (4.5-10.0) K/mm3 RBC 4.56 L (4.6-6.20) M/mm3 Hgb 10.6 L (14.0-18.0) g/dL Hct 35.4 L (42.0-52.0) % MCV 77.6 L (80-100) fl MCH 23.2 L (26-34) pg MCHC 29.9 L (32-36) g/dl RDW 17.3 H (11.5-14.5) % Plt Count 385 H (150-375) k/mm3 MPV 9.4 (7.4-10.4) fl Immature Gran % (Auto) 0.3 (0-0.5) % Neut % (Auto) 71.6 (45.5-73.1) % Lymph % (Auto) 11.5 L (18.3-44.2) % [place] % (Auto) 13.8 H (2.6-8.5) % Eos % (Auto) 2.4 (0-4.4) % Baso % (Auto) 0.4 (0.2-1.2) % Lymph # (Auto) 0.80 L (0.9-3.2) K/mm3 [place] # (Auto) 1.0 H (0.1-0.6) K/mm3 Eos # (Auto) 0.2 (0-0.3) K/mm3 Baso # (Auto) 0.0 (0.0-0.1) K/mm3 Abs Immat Gran (auto) 0.02 (0.00-0.031) K/mm3 Absolute Neuts (auto) 5.0 (1.3-6.7) K/mm3 Absolute Nucleated RBC 0.000 (0.0-0.012) K/mm3 Nucleated RBC % 0.0 (0.0-0.2) % Platelet Estimate Adequate (Adequate) Hypochromasia 1+ Anisocytosis 1+ Target Cells 1+ Schistocytes None seen Sodium 135 L (137-145) mmol/L Potassium 3.8 (3.4-5.0) mmol/L Chloride 106 (98-107) mmol/L Carbon Dioxide 26 (22-30) mmol/L Anion Gap 3 L (4-12) mmol/L BUN 12 D (9-20) mg/dL Creatinine 1.10 (0.7-1.3) mg/dL Estim Creat Clear Calc Not Reportable Estimated GFR > 60 (59 - ) Glucose 114 H (65-110) mg/dL Calcium 9.2 (8.4-10.2) mg/dL Total Bilirubin 0.4 (0.2-1.3) mg/dL AST 26 (17-59) U/L ALT 14 (6-50) U/L Alkaline Phosphatase 136 H (38-126) U/L Total Protein 8.0 (6.3-8.2) g/dL Albumin 4.2 (3.5-5.1) g/dL Imaging Data Radiologist's impression: Impressions Femur CT 06/12/24 08:03 IMPRESSION: 1. No specific evidence of osteomyelitis. Discharge Plan Discharge Clinical Impression: Leg wound, left, Cellulitis Patient Disposition: Home, Self-Care Condition: Stable Instructions: Antibiotic Form Additional Instructions: Antibiotic as directed until completed. Have close follow-up with your primary care physician. If you have any worsening symptoms then please call or return to the emergency department. Patient Language: Albanian Prescriptions: New doxycycline monohydrate 100 mg capsule 100 mg PO BID 10 Days Qty: 20 0RF No Action Anoro Ellipta 62.5-25 mcg/actuation blister with device 1 inh INHALATION DAILY sulfamethoxazole-trimethoprim 800-160 mg Tablet 1 tab PO Q12HR Qty: 15 0RF hydrocodone-acetaminophen 5-325 mg tablet 1 tablet PO Q6H PRN (Reason: pain) Qty: 5 0RF atorvastatin 40 mg tablet 40 mg PO DAILY Qty: 30 0RF gabapentin 600 mg tablet 600 mg PO BID Qty: 60 0RF isosorbide mononitrate 30 mg tablet extended release 24 hr 30 mg PO DAILY Qty: 30 0RF potassium chloride 10 mEq tablet extended release 10 meq PO DAILY Qty: 30 0RF clopidogrel 75 mg tablet 75 mg PO BID Qty: 60 0RF pantoprazole 40 mg tablet,delayed release (DR/EC) 40 mg PO BID Qty: 30 0RF aspirin 81 mg tablet,chewable 81 mg PO DAILY Qty: 30 0RF albuterol sulfate 90 mcg/actuation HFA aerosol inhaler 2 puff INHALATION Q4H PRN (Reason: SOB) Qty: 6.7 0RF metoprolol tartrate 25 mg tablet 25 mg PO DAILY Qty: 30 0RF duloxetine 60 mg capsule,delayed release(DR/EC) 60 mg PO DAILY Qty: 30 0RF cephalexin 500 mg capsule 500 mg PO Q8H 5 Days Qty: 15 0RF sulfamethoxazole-trimethoprim [Bactrim DS] 800-160 mg tablet 1 tablet PO Q12H 5 Days Qty: 10 0RF umeclidinium-vilanterol 62.5-25 mcg/actuation blister with device 1 inh inhalation Q24H Qty: 14 0RF aspirin 81 mg tablet,chewable 81 mg PO DAILY Qty: 30 0RF gabapentin 600 mg tablet 600 mg PO BID 30 Days Qty: 60 0RF metoprolol tartrate 25 mg tablet 25 mg PO BID 30 Days Qty: 60 0RF pantoprazole 40 mg tablet,delayed release (DR/EC) 40 mg PO BID 30 Days Qty: 60 0RF potassium chloride 10 mEq capsule, extended release 10 meq PO DAILY 30 Days Qty: 30 0RF albuterol sulfate 90 mcg/actuation HFA aerosol inhaler 1 inh inhalation QID PRN (Reason: shortness of breath or wheezing) Qty: 6.7 0RF atorvastatin 40 mg tablet 40 mg PO HS 30 Days Qty: 30 0RF clopidogrel 75 mg tablet 75 mg PO DAILY 30 Days Qty: 30 0RF duloxetine 60 mg capsule,delayed release(DR/EC) 60 mg PO DAILY Qty: 30 0RF isosorbide mononitrate 30 mg tablet extended release 24 hr 30 mg PO DAILY Qty: 30 0RF Follow-up/Referrals: UNKNOWN,DOCTOR [Primary Care Provider] -
[2024-06-12 08:10] LABS: Hypochromasia 1+; Platelet Estimate Adequate (Adequate); Target Cells 1+
[2024-06-12 08:11] LABS: Anisocytosis 1+; Schistocytes None Seen
[2024-06-12 08:37] VITALS: BP 185/84; PULSE 85; RESP 20; TEMP 36.7; O2SAT 100
--- NOTE | 2024-06-12 08:56 | PC.NURSE ---
0835: Pts left above the knee amputation site soo with circular black scabbed wound noted. Hot to touch. Right lower leg vascular incision site with partial evisceration no drainage area beginning to heal. Right pedal & post tibial pulses plus 3 with doppler. Pt c/o pain to right groin vascular surgical site. No open areas noted to right groin
[2024-06-12] MEDS: DOXYCYCLINE HYCLATE 100 MG TABLET PO (09:05)
--- NOTE | 2024-06-12 09:07 | PC.NURSE ---
Pt informed of discharge. Pt calling for a ride
--- OUTSIDE RECORDS SUMMARY | 2024-06-19 02:22 | XMS_ITS | CONTINUITY OF CARE DOCUMENT ---
Author Name betzy bo Address Unknown Organization [facility] Address [address] [address] [place] [address] Phone [phone] Care Team Providers Care Machine Rope Maker Name Role Phone Jn David MD Unavailable Jn David MD Unavailable PROBLEMS Condition Status Date Provider Notes Hypertension active ? Calixto Aquino MD Hyperlipidemia active ? Calixto Aquino MD Tobacco abuse active Calixto Aquino MD Hypercholesterolemia active Calixto Javier HTN essential active Calixto Aquino MD PVD with claudication active Calixto Aquino MD Other symptoms involving car diovascular system active Calixto Aquino MD Family History of CVA or Stroke: active ? Anuel Aquino MD ENCOUNTERS Date Type Provider Location Encounter Diag nosis - In-person encounter Office Visit Calixto Aquino MD [facility] Office Family History of CVA or Stroke:Other symptoms involving cardiovascular systemPVD with claudicationHTN essentialHypercholesterolemiaTobacco abuseHyperlipidemiaHypertension VITAL SIGNS Date Observation Value Provider blood pressure, diastolic 77 mm[Hg] Ankur Duarte blood pressure, systolic 146 mm[Hg] Aramis Duarte Body Mass Index (Ratio) 31.32 kg/m2 Zonia Duarte pulse rate 69 /min Karol Duarte oxygen saturation, oximetry 98 % Karol Duarte respiratory rate E&M 20 /min Karol Duarte weight E&M 200 [lb_av] Karol Duarte height E&M 67 [in_i] Karol Duarte ALLERGIES No Known Drug Allergies HISTORY OF MEDICATION USE Medication Status Instructions Dates Provider Indications Com ments ATENOLOL 25 MG ORAL TABLET active 1 TAB DAILY Karol Duarte HYDROCODONE-ACETAMI NOPHEN 10-325 MG/15ML ORAL SOLUTION active NEEDED Karol Felicia SIMVASTATIN 10 MG ORAL TABLET active 1 TAB DAILY Karolmartina Duarte RANITIDINE HCL 150 MG ORAL CAPSULE active 1 TAB TWICE DAILY Karolmartina Duarte NABUMETONE 750 MG ORAL TABLET active 1 TAB TWICE DAILY Karol Duarte SOCIAL HISTORY Date Observation Value Provider smoking/tobacco cess ation, patient education and counseling yes Calixto Aquino MD alcohol use no Calixto Javier passive cigarette sm alessio exposure yes Calixto Aquino MD social history reviewed E&M revi ewed - no changes required Calixto Aquino MD social history E&M Patient lj tomas smokes every day. Smoking History: P atkunal currently smokes every day. Karol Duarte smoking history, tot al pack/day 0.5PK Karol Felicia cigarette use yes Karol Duarte smoking status current every day smoker T jenna Felicia FAMILY HISTORY Family Member Condition Full Sister Family History of CV A or Stroke: Full Brother Family History of Co ronary Artery Disease: Mother Family History of Co ronary Artery Disease: Mother Family History of Di abetes: INSURANCE PROVIDERS Payer name Policy type / Coverage type [facility] AND FAMILY SERVICES Medicaid 1 [id number] TREATMENT PLAN Date Name Performer Cardiology,NEW PT Calixto Aquino MD Cardiology,NEW PT Calixto Aquino MD Cardiology,NEW PT:Se hailee bilateral femoral disease. Scheduled for bilat fem-pop at [place]. S tress test negative. Cleared for surgery. Calixto Aquino MD HISTORY OF PROCEDURES Procedure Date Procedure Name Provider Procedure Notes S shaunus EKG Calixto Aquino MD complete d
--- OUTSIDE RECORDS SUMMARY | 2024-06-19 02:22 | XMS_ITS | Patient Health Record ---
Author Organization Count includes the [facility] Address [address] [place] [address] Care Team Providers Care Planning Technician Name Role Phone Narciso Roldan Primary Care Provider Reason For Referral No Information Medications Medication SIG (Take, Route, Frequency, Duration) Notes Start Date End Date Status Metoprolol Succinate 25 MG 1 capsule Ora lly Once a day for 30 day(s) 12/24/2019 Active Atorvastatin Calcium 40 MG 1 tablet Oral ly Once a day for 30 day(s) 12/24/2019 Active Clopidogrel Bisulfate 75 MG 1 tablet Ora lly Once a day for 30 day(s) 12/24/2019 Active Social History Tobacco Use: Social History Observation Description Date Details (start date - stop date) Current Smoker NA - NA Dont use, Tobacco Use/Smoking Question Answer Notes Are you a current smoker Alcohol Screen (Audit-C) Question Answer Notes Did you have a drink containing alcohol in the p ast year? Yes Problems Problem Type SNOMED Code ICD Code Onset Dates Problem Status W/U Status Risk Notes Problem 203563931 Prostate cancer screening (Z12.5) Active confirmed Problem 57374165 Depression, unspecified depression type (F32.9) Active confirmed Problem Methamphetamine abuse (463619713) Methamphetamine abuse (F15.10) Active confirmed Problem 278650725 Erectile dysfunction, unspecified erectile dysfunction type (N52.9) Active confirmed Problem 589645471 Gastroesophageal reflux disease, esophagitis presence not specified (K21.9) Active confirmed Problem 22787991 Hyperlipidemia, unspecified hyperlipidemia type (E78.5) Active confirmed Problem 776421104 PAD (peripheral artery disease) (I73.9) Active confirmed Problem 374248413 Tobacco use disorder (F17.200) Active confirmed Problem 75484004 Hypertension, unspecified type (I10) Active confirmed Problem 893160410 Angina at rest (I20.8) 020 Active confirmed Plan Of Treatment No Information Insurance Providers Payer Name Payer Address Payer Phone Subscriber Number Group Number Insured Name Patient Relationship to Insured Coverage Start Date Coverage End Date [facility] [address] [place] [address] [phone] [id number] Osito Aburto Self - patient is the insured 9 Medical (General) History Medical History History ICD Code hep c positive Clogged artery Surgical History Surgery Date(Month/Year) artery replaced in both legs 2015
== END 2024-06-12 09:30 | disposition home or self-care (01) ==
PROVIDERS: Emergency Provider Emergency Medicine
DX: S71.102A Unspecified open wound, left thigh, initial encounter (principal); L03.116 Cellulitis of left lower limb; Z89.612 Acquired absence of left leg above knee; F17.210 Nicotine dependence, cigarettes, uncomplicated
CPT/HCPCS: 36415; 73701; 80053; 85025; 99284; A9270; Q9967

== ENCOUNTER 2024-07-15 15:00 | Emergency (ER) | payer OTHER, SELFPAY ==
--- NOTE | ~2024-07-15 | XR_ITS ---
EXAMINATION: XR femur LT min 2V DATE: 07/15/2024 17:14 INDICATION: Left thigh wound. TECHNIQUE: 2 views of left femur on 4 radiographs were obtained. COMPARISON: CT 06/12/2024 FINDINGS: There is a left above-knee amputation. No acute fracture. There are no acute erosions of th e distal femur. There is mild left hip osteoarthritis. There are vascular stents in the left pelvis a nd left thigh. IMPRESSION: 1. No specific evidence of osteomyelitis. Reviewed, dictated and finalized at location A. ICAL OPTICS TEACHER
--- NOTE | ~2024-07-15 | CT_ITS ---
CT OF left femur EXAMINATION: CT femur LT wo con DATE: 07/15/2024 22:13 INDICATION: Rule out osteomyelitis TECHNIQUE: Computed tomography (CT) of the left femur was performed without intravenous contrast. Aut omated exposure control and iterative reconstruction technique were employed. The dose-length product was 854.62 mGy-cm. COMPARISON: X-ray left femur, same date; CT left femur 06/12/2024 FINDINGS: Above-knee left femoral amputation. Vascular stents over the pelvis and mid/distal thigh. O steopenia. No new osseous erosion or periosteal change. Chronic stable postsurgical changes in the di stal femoral shaft. Irregular ossification projecting off the posterolateral cortex, with overlying 1 .9 x 2.7 x 3.5 cm thick-walled soft tissue fluid collection. Irregular soft tissue defect over the di stal stump. Large right hydrocele. IMPRESSION: No CT evidence of osteomyelitis. New 3.5 cm fluid collection overlying dystrophic ossification along the posterior lateral aspect of t he distal femur, may represent inflammatory change or abscess. Suspected soft tissue ulceration at the distal stump, without definite connection to the above-descri bed fluid collection. Reviewed, dictated and finalized at location K. ASTRUCTURE DESIGN ENGINEER IMPRESSION: No CT evidence of osteomyelitis. New 3.5 cm fluid collection overlying dystrophic ossification along the posteri or lateral aspect of the distal femur, may represent inflammatory change or abs cess. Suspected soft tissue ulceration at the distal stump, without definite connecti on to the above-described fluid collection.
--- NOTE | 2024-07-15 15:00 | PC.NURSE ---
son, Silvino , can call if pt needs a ride home
--- OUTSIDE RECORDS SUMMARY | 2024-07-15 15:46 | XMS_ITS | Patient Health Record ---
Author Organization [facility] Address [address] [place] [address] Care Team Providers Care Physical Therapy Teacher Name Role Phone Narciso Roldan Primary Care [...] Problem Status W/U Status Risk Notes Problem 612114028 Prostate cancer screening (Z12.5) Active confirmed Problem 97873636 Depression, unspecified depression type (F32.9) Active confirmed Problem Methamphetamine abuse (321576562) Methamphetamine abuse (F15.10) Active confirmed Problem 766462782 Erectile dysfunction, unspecified erectile dysfunction type (N52.9) Active confirmed Problem 706006442 Gastroesophageal reflux disease, esophagitis presence not specified (K21.9) Active confirmed Problem 93295357 Hyperlipidemia, unspecified hyperlipidemia type (E78.5) Active confirmed Problem 291076155 PAD (peripheral artery disease) (I73.9) Active confirmed Problem 788167388 Tobacco use disorder (F17.200) Active confirmed Problem 08837749 Hypertension, unspecified type (I10) Active confirmed Problem 613645004 Angina at rest (I20.8) 020 Active confirmed Plan Of Treatment No Information Insurance Providers Payer Name Payer Address Payer Phone Subscriber Number Group Number Insured Name Patient Relationship to Insured Coverage Start Date Coverage End Date [facility] [address] [place] [address] [phone] [id number] Osito Aburto Self - patient is the insured 9 Medical (General) History Medical History History ICD Code hep c positive Clogged artery Surgical History Surgery Date(Month/Year) artery replaced in both legs 2015
--- OUTSIDE RECORDS SUMMARY | 2024-07-15 15:46 | XMS_ITS | CONTINUITY OF CARE DOCUMENT ---
Author Name betzy bo Address Unknown Organization [facility] Address [address] [place] [address] Phone [phone] Care Team Providers Care Publication Specialist Name Role Phone Jn David MD Unavailable [...] In-person encounter Office Visit Calixto Aquino MD [facility] Office Family History of CVA or Stroke:Other [...] Payer name Policy type / Coverage type [facility] AND FAMILY SERVICES Medicaid 1 [id number] TREATMENT PLAN Date Name Performer Cardiology,NEW PT Calixto Aquino MD Cardiology,NEW PT Calixto Aquino MD Cardiology,NEW PT:Se hailee bilateral femoral disease. Scheduled for bilat fem-pop at [place]. S tress test negative. Cleared for surgery. Calixto Aquino MD HISTORY OF PROCEDURES Procedure Date Procedure Name Provider Procedure Notes S shaunus EKG Calixto Aquino MD complete d
[2024-07-15 15:59] VITALS: BP 142/79; PULSE 68; RESP 20; TEMP 36.8; O2SAT 96
--- NOTE | 2024-07-15 16:36 | ED_ITS ---
HPI - Wound/Laceration General Chief Complaint: Wound/Laceration <Kiki Bales PA-C - Last Filed: 07/15/24 16:38> Stated Complaint: stump wound <Kiki Bales PA-C - Last Filed: 07/15/24 16:38> Time Seen by Provider: 07/15/24 21:51 <Kiki Bales PA-C - Last Filed: 07/15/24 16:38> Focused HPI: 64-year-old male with history of left [id number] amputation presents to emergency department for wound to the left stump site. Patient states he has had an ulcer there for the past 2 months, however he began having pain several days ago which prompted him to come to the ED. Reports some drainage out of the site. No fevers. GENERAL: Well-appearing, well-nourished, and in no acute distress. HEAD: Normocephalic, atraumatic. CHEST: Clear to auscultation. ?No respiratory distress. EXT: Left ihctj-los-[id number] amputation with a approximately 3 cm open wound with old crusting ground drainage, no active purulence, minimal surrounding erythema with tenderness. No fluctuance or induration, no crepitus. HEART: Regular rate and rhythm.? NEURO: ?Alert and oriented x3. Patient screened in triage and initial orders placed.? ?Additional care and disposition to be based upon?diagnostic testing and treatment. <Kiki Bales PA-C - Last Filed: 07/15/24 16:38> History of Present Illness HPI narrative: Agree with the HPI as described above. Patient informs me that he has had vascular procedures previously at [facility] and [facility] resulting in his left-sided AKA and amputation. He states this occurred several years ago. At the end of last year he had vascular procedures right lower extremity with bypass grafting without complication. <Brandon Rothman MD - Last Filed: 07/16/24 04:17> Related Data Home Medications: Home Medications ?Medication ?Instructions ?Recorded ?Confirmed ?Last Taken ?Type umeclidinium 62.5 mcg-vilanterol 1 inh inhalation DAILY 04/27/24 07/16/24 Unknown History 25 mcg/actuation powdr for inhalation (Anoro Ellipta) amlodipine 5 mg tablet 5 mg PO DAILY 07/16/24 07/16/24 Unknown History <Kiki Bales PA-C - Last Filed: 07/15/24 16:38> Allergies/Adverse Reactions: Allergies Allergy/AdvReac Type Severity Reaction Status Date / Time No Known Allergies Allergy Verified 03/30/24 18:58 <Kiki Bales PA-C - Last Filed: 07/15/24 16:38> Review of Systems 2 Review of Systems: As reviewed above in HPI <Brandon Rothman MD - Last Filed: 07/16/24 04:17> PMFSH Past Medical History Medical History: Medical History Peripheral vascular disease History of COPD History of cellulitis <Kiki Bales PA-C - Last Filed: 07/15/24 16:38> Surgical History Surgical History: Surgical History History of left above knee amputation Javan NE -> Dru; approx 2021 H/O vascular surgery Right, [place] <Kiki Bales PA-C - Last Filed: 07/15/24 16:38> Social History Social History: Social History Smoking packs per day: 1 Smoking cigarettes per day: 20.0 Years smoked: 20 Smoking pack-years: 20.00 Smoking status: Current every day smoker Substance use type: does not use Do You Feel Safe in your Home?: Yes Lack of Transportation: YES Lack of Food: Sometimes True Current Housing: I Have Housing Concerned About Future Housing: No Difficulty Paying Gas/Electric Bills: No Difficulty Paying for Meds: YES Currently Unemployed: No Education: Grade School Difficulty w/ Childcare or Family Care: No Living arrangements: with family Additional living arrangements comments: sister Spiritual care concerns: No <Kiki Bales PA-C - Last Filed: 07/15/24 16:38> Exam 2 Narrative: GENERAL: Well-appearing, well-nourished, and in no acute distress. HEAD: Normocephalic, atraumatic. CHEST: Clear to auscultation. ?No respiratory distress. EXT: Left sksym-iba-elww amputation with a approximately 3 cm open wound with old crusting ground drainage, no active purulence, minimal surrounding erythema with tenderness. No fluctuance or induration, no crepitus. HEART: Regular rate and rhythm.? Right-sided lower extremity with large previous surgical scar from bypass grafting/vascular procedure NEURO: ?Alert and oriented x3. <Brandon Rothman MD - Last Filed: 07/16/24 04:17> Course Reevaluation(s) Reevaluation #1: At time of re-evaluation patient is resting comfortably. Patient was requesting intermittent pain medications and these were ordered p.r.n.. Patient is currently taking his amlodipine and Plavix. We are still awaiting a bed for transfer. <Clemente Iverson MD - Last Filed: 07/17/24 22:25> Vital Signs Vital signs: Vital Signs Temperature 98.2 F 07/15/24 15:59 Pulse Rate 68 07/15/24 15:59 Respiratory Rate 20 07/15/24 15:59 Blood Pressure 142/79 H 07/15/24 15:59 Pulse Oximetry 96 07/15/24 15:59 Oxygen Delivery Room Air 07/15/24 15:59 Temperature 97.9 F 07/17/24 04:02 Pulse Rate 73 07/17/24 04:02 Respiratory Rate 17 07/17/24 04:02 Blood Pressure 164/94 H 07/17/24 04:02 Pulse Oximetry 97 07/17/24 04:02 Oxygen Delivery Room Air 07/15/24 15:59 <Kiki Bales PA-C - Last Filed: 07/15/24 16:38> Vital Signs Temperature 98.2 F 07/15/24 15:59 Pulse Rate 68 07/15/24 15:59 Respiratory Rate 20 07/15/24 15:59 Blood Pressure 142/79 H 07/15/24 15:59 Pulse Oximetry 96 07/15/24 15:59 Oxygen Delivery Room Air 07/15/24 15:59 Temperature 97.9 F 07/17/24 04:02 Pulse Rate 73 07/17/24 04:02 Respiratory Rate 17 07/17/24 04:02 Blood Pressure 164/94 H 07/17/24 04:02 Pulse Oximetry 97 07/17/24 04:02 Oxygen Delivery Room Air 07/15/24 15:59 <Brandon Rothman MD - Last Filed: 07/16/24 04:17> Vital Signs Temperature 98.2 F 07/15/24 15:59 Pulse Rate 68 07/15/24 15:59 Respiratory Rate 20 07/15/24 15:59 Blood Pressure 142/79 H 07/15/24 15:59 Pulse Oximetry 96 07/15/24 15:59 Oxygen Delivery Room Air 07/15/24 15:59 Temperature 97.9 F 07/17/24 04:02 Pulse Rate 73 07/17/24 04:02 Respiratory Rate 17 07/17/24 04:02 Blood Pressure 164/94 H 07/17/24 04:02 Pulse Oximetry 97 07/17/24 04:02 Oxygen Delivery Room Air 07/15/24 15:59 <Clemente Iverson MD - Last Filed: 07/17/24 22:25> MDM - Wound/Laceration MDM Narrative Medical decision making narrative: 64-year-old male with a past medical history including COPD, peripheral vascular disease with unilateral above the knee amputation of the left lower extremity. He has had previous cellulitis of his extremities and presents to the emergency department today with concerns of left lower extremity stump wound and pain. For last 2 months he has been having a slowly growing ulceration at the distal stump on the left lower extremity. Denies any injuries or traumatic events. He states now he is having some unbearable pain in his left-sided lower extremity stump more proximally to the ulceration. Did not note any drainage. Did not have any fever, chills, chest pain, shortness a breath. He was otherwise in his normal state of health. Tried to go to [facility] yesterday but the wait was too long so he came here today. Has not taken anything for the pain. He does have a chronic appearing dry gangrenous ulceration to the distal left lower extremity at the stump site with a ulceration without active purulence, there is some tenderness with palpation this area but no fluctuance. There is no skin erythema or overlying cellulitis in the left lower extremity. Contralateral lower extremity with previous surgical scar site that appears clean, dry, intact. He is afebrile, otherwise not any acute discomfort or distress but is expressing significant pain. Blood pressure within normal limits. Laboratory studies were obtained and he was given pain control medications. A CT scan of the his left lower extremities ordered to better characterize his ulceration and see if there is any other bony process such as osteomyelitis. Workup reveals no leukocytosis, anemia of 10.9 which is at his baseline. Normal platelet count. Electrolytes are within normal limits, normal kidney function, normal glucose and hepatic function panel. CT of the left femur area shows no evidence of osteomyelitis but there is a large 3.5 cm fluid collection along the posterior lateral aspect of the distal femur secondary to potential abscess formation. There is also soft tissue ulceration at the distal stump which is evident clinically without any definitive connection between the stump and the abscess/fluid collection. Went and re-evaluated the patient who did require additional pain medications with improvement. I informed him of the findings I CT scan and will likely need to be transferred to a higher level of care center with vascular surgery services in case he needs debridement and even further amputation. Patient was agreeable to transfer this time. I initially tried to transfer him to the [facility] where his previous amputation was however the transfer center made me aware that they are currently at capacity for all beds and have no ability to accept him. Tried the [facility] at this time and was connected with [facility] through Dr. Hutchinson who is the hospitalist and accepting physician at their facility. General surgery and vascular surgery was spoken to by the transfer center and they are aware and on consult for the patient. He was accepted as a direct transfer to a medical-surgical bed once available. Patient comfortable this plan of care. He remains on vancomycin doxycycline for his wound and a wound culture was sent. Pending bed availability, patient will remain in the emergency department on antibiotic therapy until successful transfer. <Brandon Rothman MD - Last Filed: 07/16/24 04:17> Medical Records Attestation: I reviewed the patient's medical records. <Brandon Rothman MD - Last Filed: 07/16/24 04:17> Lab Data Attestation: I reviewed the patient's lab results. <Brandon Rothman MD - Last Filed: 07/16/24 04:17> Result diagrams: 07/15/24 20:43 07/17/24 06:47 <Kiki Bales PA-C - Last Filed: 07/15/24 16:38> Labs: Lab Results 07/15/24 07/16/24 07/17/24 Range/Units 20:43 06:34 06:47 WBC 3.1 L (4.5-10.0) K/mm3 RBC 4.77 (4.6-6.20) M/mm3 Hgb 10.9 L (14.0-18.0) g/dL Hct 36.9 L (42.0-52.0) % MCV 77.4 L (80-100) fl MCH 22.9 L (26-34) pg MCHC 29.5 L (32-36) g/dl RDW 17.1 H (11.5-14.5) % Plt Count 337 (150-375) k/mm3 MPV 8.7 (7.4-10.4) fl Immature Gran % (Auto) Not Reportable Neut % (Auto) Not Reportable Lymph % (Auto) Not Reportable [place] % (Auto) Not Reportable Eos % (Auto) Not Reportable Baso % (Auto) Not Reportable Lymph # (Auto) Not Reportable [place] # (Auto) Not Reportable Eos # (Auto) Not Reportable Baso # (Auto) Not Reportable Abs Immat Gran (auto) Not Reportable Absolute Neuts (auto) Not Reportable Absolute Nucleated RBC Not Reportable Total Counted 100 Neutrophils % (Manual) 63 (46-73) % Band Neutrophils % 2 (0-6) % Lymphocytes % (Manual) 18.0 (18-44) % Monocytes % (Manual) 17 H (3-9) % Nucleated RBC % Not Reportable Abs Neuts (Manual) 2.01 (1.3-6.7) K/mm3 Abs Lymphs (Manual) 0.55 L (1.1-4.5) K/mm3 Abs Monocytes (Manual) 0.52 (0.1-0.90) K/mm3 Platelet Estimate Adequate (Adequate) Hypochromasia 1+ Anisocytosis 1+ Ovalocytes 1+ Schistocytes None seen Sodium 135 L (137-145) mmol/L Potassium 4.4 (3.4-5.0) mmol/L Chloride 98 (98-107) mmol/L Carbon Dioxide 27 (22-30) mmol/L Anion Gap 10 (4-12) mmol/L BUN 11 (9-20) mg/dL Creatinine 1.18 1.03 0.86 (0.7-1.3) mg/dL Estim Creat Clear Calc 57 65 77 ml/min Estimated GFR > 60 > 60 > 60 (59 - ) Glucose 111 H (65-110) mg/dL Calcium 8.7 (8.4-10.2) mg/dL Total Bilirubin 0.6 (0.2-1.3) mg/dL AST 26 (17-59) U/L ALT 12 (6-50) U/L Alkaline Phosphatase 144 H (38-126) U/L Total Protein 8.0 (6.3-8.2) g/dL Albumin 4.1 (3.5-5.1) g/dL <Kiki Bales PA-C - Last Filed: 07/15/24 16:38> Lab Results 07/15/24 07/16/24 07/17/24 Range/Units 20:43 06:34 06:47 WBC 3.1 L (4.5-10.0) K/mm3 RBC 4.77 (4.6-6.20) M/mm3 Hgb 10.9 L (14.0-18.0) g/dL Hct 36.9 L (42.0-52.0) % MCV 77.4 L (80-100) fl MCH 22.9 L (26-34) pg MCHC 29.5 L (32-36) g/dl RDW 17.1 H (11.5-14.5) % Plt Count 337 (150-375) k/mm3 MPV 8.7 (7.4-10.4) fl Immature Gran % (Auto) Not Reportable Neut % (Auto) Not Reportable Lymph % (Auto) Not Reportable [place] % (Auto) Not Reportable Eos % (Auto) Not Reportable Baso % (Auto) Not Reportable Lymph # (Auto) Not Reportable [place] # (Auto) Not Reportable Eos # (Auto) Not Reportable Baso # (Auto) Not Reportable Abs Immat Gran (auto) Not Reportable Absolute Neuts (auto) Not Reportable Absolute Nucleated RBC Not Reportable Total Counted 100 Neutrophils % (Manual) 63 (46-73) % Band Neutrophils % 2 (0-6) % Lymphocytes % (Manual) 18.0 (18-44) % Monocytes % (Manual) 17 H (3-9) % Nucleated RBC % Not Reportable Abs Neuts (Manual) 2.01 (1.3-6.7) K/mm3 Abs Lymphs (Manual) 0.55 L (1.1-4.5) K/mm3 Abs Monocytes (Manual) 0.52 (0.1-0.90) K/mm3 Platelet Estimate Adequate (Adequate) Hypochromasia 1+ Anisocytosis 1+ Ovalocytes 1+ Schistocytes None seen Sodium 135 L (137-145) mmol/L Potassium 4.4 (3.4-5.0) mmol/L Chloride 98 (98-107) mmol/L Carbon Dioxide 27 (22-30) mmol/L Anion Gap 10 (4-12) mmol/L BUN 11 (9-20) mg/dL Creatinine 1.18 1.03 0.86 (0.7-1.3) mg/dL Estim Creat Clear Calc 57 65 77 ml/min Estimated GFR > 60 > 60 > 60 (59 - ) Glucose 111 H (65-110) mg/dL Calcium 8.7 (8.4-10.2) mg/dL Total Bilirubin 0.6 (0.2-1.3) mg/dL AST 26 (17-59) U/L ALT 12 (6-50) U/L Alkaline Phosphatase 144 H (38-126) U/L Total Protein 8.0 (6.3-8.2) g/dL Albumin 4.1 (3.5-5.1) g/dL <Brandon Rothman MD - Last Filed: 07/16/24 04:17> Lab Results 07/15/24 07/16/24 07/17/24 Range/Units 20:43 06:34 06:47 WBC 3.1 L (4.5-10.0) K/mm3 RBC 4.77 (4.6-6.20) M/mm3 Hgb 10.9 L (14.0-18.0) g/dL Hct 36.9 L (42.0-52.0) % MCV 77.4 L (80-100) fl MCH 22.9 L (26-34) pg MCHC 29.5 L (32-36) g/dl RDW 17.1 H (11.5-14.5) % Plt Count 337 (150-375) k/mm3 MPV 8.7 (7.4-10.4) fl Immature Gran % (Auto) Not Reportable Neut % (Auto) Not Reportable Lymph % (Auto) Not Reportable [place] % (Auto) Not Reportable Eos % (Auto) Not Reportable Baso % (Auto) Not Reportable Lymph # (Auto) Not Reportable [place] # (Auto) Not Reportable Eos # (Auto) Not Reportable Baso # (Auto) Not Reportable Abs Immat Gran (auto) Not Reportable Absolute Neuts (auto) Not Reportable Absolute Nucleated RBC Not Reportable Total Counted 100 Neutrophils % (Manual) 63 (46-73) % Band Neutrophils % 2 (0-6) % Lymphocytes % (Manual) 18.0 (18-44) % Monocytes % (Manual) 17 H (3-9) % Nucleated RBC % Not Reportable Abs Neuts (Manual) 2.01 (1.3-6.7) K/mm3 Abs Lymphs (Manual) 0.55 L (1.1-4.5) K/mm3 Abs Monocytes (Manual) 0.52 (0.1-0.90) K/mm3 Platelet Estimate Adequate (Adequate) Hypochromasia 1+ Anisocytosis 1+ Ovalocytes 1+ Schistocytes None seen Sodium 135 L (137-145) mmol/L Potassium 4.4 (3.4-5.0) mmol/L Chloride 98 (98-107) mmol/L Carbon Dioxide 27 (22-30) mmol/L Anion Gap 10 (4-12) mmol/L BUN 11 (9-20) mg/dL Creatinine 1.18 1.03 0.86 (0.7-1.3) mg/dL Estim Creat Clear Calc 57 65 77 ml/min Estimated GFR > 60 > 60 > 60 (59 - ) Glucose 111 H (65-110) mg/dL Calcium 8.7 (8.4-10.2) mg/dL Total Bilirubin 0.6 (0.2-1.3) mg/dL AST 26 (17-59) U/L ALT 12 (6-50) U/L Alkaline Phosphatase 144 H (38-126) U/L Total Protein 8.0 (6.3-8.2) g/dL Albumin 4.1 (3.5-5.1) g/dL <Clemente Iverson MD - Last Filed: 07/17/24 22:25> Imaging Data Attestation: I personally reviewed and interpreted this imaging study as follows: < Brandon Rothman MD - Last Filed: 07/16/24 04:17> My impression: Impressions Femur X-Ray 07/15/24 17:15 IMPRESSION: 1. No specific evidence of osteomyelitis. Femur CT 07/15/24 22:40 IMPRESSION: No CT evidence of osteomyelitis. New 3.5 cm fluid collection overlying dystrophic ossification along the posterior lateral aspect of the distal femur, may represent inflammatory change or abscess. Suspected soft tissue ulceration at the distal stump, without definite connection to the above-described fluid collection. <Brandon Rothman MD - Last Filed: 07/16/24 04:17> Discharge Plan Discharge Clinical Impression: AKA stump complication, Abscess of left lower extremity, Pressure ulcer with necrosis of soft tissues through to underlying muscle, tendon, or bone <Kiki Bales PA-C - Last Filed: 07/15/24 16:38> Patient Disposition: Acute Care Hospital <Kiki Bales PA-C - Last Filed: 07/15/24 16:38> Condition: Stable <Kiki Bales PA-C - Last Filed: 07/15/24 16:38> Patient Language: Nicaraguan <Kiki Bales PA-C - Last Filed: 07/15/24 16:38> Prescriptions: No Action Anoro Ellipta 62.5-25 mcg/actuation blister with device 1 inh INHALATION DAILY atorvastatin 40 mg tablet 40 mg PO DAILY Qty: 30 0RF gabapentin 600 mg tablet 600 mg PO BID Qty: 60 0RF isosorbide mononitrate 30 mg tablet extended release 24 hr 30 mg PO DAILY Qty: 30 0RF potassium chloride 10 mEq tablet extended release 10 meq PO DAILY Qty: 30 0RF clopidogrel 75 mg tablet 75 mg PO BID Qty: 60 0RF pantoprazole 40 mg tablet,delayed release (DR/EC) 40 mg PO BID Qty: 30 0RF aspirin 81 mg tablet,chewable 81 mg PO DAILY Qty: 30 0RF albuterol sulfate 90 mcg/actuation HFA aerosol inhaler 2 puff INHALATION Q4H PRN (Reason: SOB) Qty: 6.7 0RF metoprolol tartrate 25 mg tablet 25 mg PO DAILY Qty: 30 0RF duloxetine 60 mg capsule,delayed release(DR/EC) 60 mg PO DAILY Qty: 30 0RF umeclidinium-vilanterol 62.5-25 mcg/actuation blister with device 1 inh inhalation Q24H Qty: 14 0RF gabapentin 600 mg tablet 600 mg PO BID 30 Days Qty: 60 0RF metoprolol tartrate 25 mg tablet 25 mg PO BID 30 Days Qty: 60 0RF pantoprazole 40 mg tablet,delayed release (DR/EC) 40 mg PO BID 30 Days Qty: 60 0RF atorvastatin 40 mg tablet 40 mg PO HS 30 Days Qty: 30 0RF clopidogrel 75 mg tablet 75 mg PO DAILY 30 Days Qty: 30 0RF duloxetine 60 mg capsule,delayed release(DR/EC) 60 mg PO DAILY Qty: 30 0RF isosorbide mononitrate 30 mg tablet extended release 24 hr 30 mg PO DAILY Qty: 30 0RF amlodipine 5 mg tablet 5 mg PO DAILY <Kiki Bales PA-C - Last Filed: 07/15/24 16:38> Follow-up/Referrals: UNKNOWN,DOCTOR [Primary Care Provider] - <Kiki Bales PA-C - Last Filed: 07/15/24 16:38> Time of Disposition: 04:16 <Kiki Bales PA-C - Last Filed: 07/15/24 16:38> 04:16 <Brandon Rothman MD - Last Filed: 07/16/24 04:17> 04:16 <Clemente Iverson MD - Last Filed: 07/17/24 22:25>
[2024-07-15 20:48] LABS: Hematocrit 36.9 % (42.0-52.0); Hemoglobin 10.9 g/dL (14.0-18.0); Mean Corpuscular HGB Conc 29.5 g/dl (32-36); Mean Corpuscular Hemoglobin 22.9 pg (26-34); Mean Corpuscular Volume 77.4 fl (80-100); Mean Platelet Volume 8.7 fl (7.4-10.4); Platelet Count Result 337 k/mm3 (150-375); Red Blood Count 4.77 M/mm3 (4.6-6.20); Red Cell Distribution Width 17.1 % (11.5-14.5); White Blood Count 3.1 K/mm3 (4.5-10.0)
[2024-07-15 20:59] LABS: Alanine Aminotransferase 12 U/L (6-50); Albumin Level 4.1 g/dL (3.5-5.1); Alkaline Phosphatase 144 U/L (38-126); Anion Gap 10 mmol/L (4-12); Aspartate Amino Transferase 26 U/L (17-59); Bilirubin,Total 0.6 mg/dL (0.2-1.3); Blood Urea Nitrogen 11 mg/dL (9-20); Calcium 8.7 mg/dL (8.4-10.2); Carbon Dioxide 27 mmol/L (22-30); Chloride 98 mmol/L (98-107); Estimated CRCL calculation 57 ml/min; Estimated Glomerular Filt Rate > 60; Glucose 111 mg/dL (65-110); Potassium 4.4 mmol/L (3.4-5.0); Sodium 135 mmol/L (137-145)
[2024-07-15 21:05] LABS: Anisocytosis 1+; Band Neutrophils Percent 2 % (0-6); Hypochromasia 1+; Lymphocytes Absolute Manual 0.55 K/mm3 (1.1-4.5); Monocytes Absolute Manual 0.52 K/mm3 (0.1-0.90); Monocytes Percent Manual 17 % (3-9); Neutrophils Absolute Manual 2.01 K/mm3 (1.3-6.7); Neutrophils Percent Manual 63 % (46-73); Ovalocytes 1+; Platelet Estimate Adequate (Adequate); Schistocytes None Seen; Total Cells Counted 100
[2024-07-15] MEDS: MORPHINE SULFATE (*CRX) 4 MG/ML INJ IV PUSH (22:21)
--- OUTSIDE RECORDS SUMMARY | 2024-07-15 22:34 | XMS_ITS | CONTINUITY OF CARE DOCUMENT ---
Author Name betzy bo Address Unknown Organization [facility] Address [address] [place] [address] Phone [phone] Care Team Providers Care Foam Fabricator Name Role Phone Jn David MD Unavailable Jn David MD Unavailable PROBLEMS Condition Status Date Provider Notes Family History of CVA or Stroke: active ? Anuel Aquino MD Other symptoms involving car diovascular system active Calixto Aquino MD PVD with claudication active Calixto Aquino MD HTN essential active Calixto Aquino MD Hypercholesterolemia active Calixto Javier Tobacco abuse active Calixto Aquino MD Hyperlipidemia active ? Calixto Aquino MD Hypertension active ? Calixto Aquino MD ENCOUNTERS Date Type Provider Location Encounter Diag nosis - In-person encounter Office Visit Calixto Aquino MD [facility] Family History of CVA or Stroke:Other [...] [lb_av] Karol Duarte height E&M 67 [in_i] aKrol Duarte ALLERGIES No Known Drug Allergies HISTORY [...] revi ewed - no changes required Calixto Aqunio MD social history E&M Patient lj tomas [...] Payer name Policy type / Coverage type [facility] [employer] Medicaid 1 [id number] TREATMENT PLAN Date Name Performer Cardiology,NEW PT Calixto Aquino MD Cardiology,NEW PT Calixto Aquino MD Cardiology,NEW PT:Se hailee bilateral femoral disease. Scheduled for bilat fem-pop at [place]. S tress test negative. Cleared for surgery. Calixto Aquino MD HISTORY OF PROCEDURES Procedure Date Procedure Name Provider Procedure Notes S shaunus EKG Calixto Aquino MD complete d
[2024-07-15] MEDS: DOXYCYCLINE 100 MG/NS 100 ML 100 MG/100 ML BAG IVPB (23:57)
[2024-07-15 23:58] VITALS: BP 138/91; PULSE 68; RESP 19; O2SAT 97
[2024-07-16] VITALS (16 sets, daily range): BP systolic 107–174; BP diastolic 52–96; PULSE 71–90; RESP 16–22; TEMP 36.4–36.6; O2SAT 96–99
--- NOTE | 2024-07-16 00:30 | PC.NURSE ---
EDP DR Nidhi SAVAGE 15MG IVP TORADOL FOR PT C/O PAIN.
[2024-07-16] MEDS: VANCOMYCIN 2,000 MG/NS 500 ML 2,000 MG/500 ML BAG 250 MG IVPB (00:47)
[2024-07-16] MEDS: KETOROLAC 15 MG/ML VIAL (*BKC) IV PUSH (00:47)
[2024-07-16 06:48] LABS: Estimated CRCL calculation 65 ml/min; Estimated Glomerular Filt Rate > 60
[2024-07-16] MEDS: DOXYCYCLINE 100 MG/NS 100 ML 100 MG/100 ML BAG IVPB (12:08)
[2024-07-16] MEDS: MORPHINE SULFATE (*CRX) 4 MG/ML INJ IV PUSH ×2 (16:41→21:26)
--- NOTE | 2024-07-16 17:08 | PC.NURSE ---
heart healthy dinner diet ordered
[2024-07-16] MEDS: VANCOMYCIN 1,500 MG/NS 500 ML 1,500 MG/500 ML BAG 250 MG IVPB (19:24)
[2024-07-16] MEDS: ATORVASTATIN 40 MG TABLET PO (21:26)
[2024-07-17] VITALS: BP 168/88; PULSE 76; RESP 18; O2SAT 98
[2024-07-17] MEDS: DOXYCYCLINE 100 MG/NS 100 ML 100 MG/100 ML BAG IVPB (00:40)
[2024-07-17 02:00] VITALS: BP 156/51; PULSE 75; RESP 17; O2SAT 96
[2024-07-17] MEDS: MORPHINE SULFATE (*CRX) 4 MG/ML INJ IV PUSH ×2 (02:25→07:05)
[2024-07-17 04:02] VITALS: BP 164/94; PULSE 73; RESP 17; TEMP 36.6; O2SAT 97
[2024-07-17 07:06] LABS: Estimated CRCL calculation 77 ml/min; Estimated Glomerular Filt Rate > 60
--- NOTE | 2024-07-17 07:40 | PC.NURSE ---
Breakfast tray ordered for pt.
== END 2024-07-17 09:25 | disposition short-term general hospital (02) ==
PROVIDERS: Physician Assistant; Emergency Provider Student in an Organized Health Care Education/Training Program
DX: T87.44 Infection of amputation stump, left lower extremity (principal); T87.54 Necrosis of amputation stump, left lower extremity; L02.416 Cutaneous abscess of left lower limb; L89.894 Pressure ulcer of other site, stage 4; I73.9 Peripheral vascular disease, unspecified; J44.9 Chronic obstructive pulmonary disease, unspecified; F17.210 Nicotine dependence, cigarettes, uncomplicated; Z79.02 Long term (current) use of antithrombotics/antiplatelets; Z79.899 Other long term (current) drug therapy; Y83.5 Amputation of limb(s) as the cause of abnormal reaction of the patient, or of later complication, without mention of misadventure at the time of the procedure
CPT/HCPCS: 36415; 73552; 73700; 80053; 82565; 85025; 87070; 87075; 87181; 87205; 96365; 96367; 96375; 99285; A9270; J1885; J2270; J3370

== ENCOUNTER 2024-08-27 14:56 | Emergency (ER) | payer OTHER, SELFPAY ==
--- NOTE | ~2024-08-27 | CT_ITS ---
Procedure: CT femur LT w con Ordering provider: Kiki Bales PA-C History: . femur uc . Comparison: July 15, 2024 Technique: Thin slice axial CT of the No IV contrast was given. Sagittal and coronal reformatted imag es were also obtained and reviewed. Radiation reduction technique utilized. The dose-length product w as 808.22 mGy-cm. 100 mL Omnipaque 350 was given IV. Findings: BONES: No fractures seen. Bone protrusion is seen in the distal femur. JOINT SPACES: Normal left hip. SOFT TISSUES: Multiple stents are seen in the left thigh arteries. No definite flow seen in the dens. Amputation is seen with no evidence of abscess formation. Ulceration is possible. Bifemoral shunt is also noted. Left hydrocele. IMPRESSION: No fracture or definite osteomyelitis. No definite soft tissue abscess formation seen. No significant change from previous examination. Reviewed, dictated and finalized at location A.
[2024-08-27 15:01] VITALS: BP 131/86; PULSE 116; RESP 22; TEMP 36.4; O2SAT 98
--- NOTE | 2024-08-27 15:10 | ED_ITS ---
HPI - Extremity Injury (Lower) General Chief Complaint: Extremity Injury, Lower <Kiki Bales PA-C - Last Filed: 08/27/24 15:13> Stated Complaint: Swelling, drainage, redness and pain to left stump <SHELLY Flores - Last Filed: 08/27/24 15:13> Time Seen by Provider: 08/27/24 18:23 <Kiki Bales PA-C - Last Filed: 08/27/24 15:13> Focused HPI:64-year-old male presents to the emergency department for wound to his left femoral stump. Patient has had this wound for several months. States over the past few days it has become red and increasingly more painful with drainage. 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 At the end of last year he had several vascular procedures right lower extremity and bypass grafting without complication. Patient was evaluated in our ED at the end of June for similar complaint and was found to have a abscess near the wound. He was transferred to [facility] or he reportedly underwent surgery was hospitalized. Patient is unable to tell me how long he was hospitalized. He states he was not discharged on any medication has been out of medications for unknown amount of time. He states he has had fevers but has not had any since yesterday. GENERAL: Well-appearing, well-nourished, and in no acute distress. HEAD: Normocephalic, atraumatic. CHEST: Clear to auscultation. ?No respiratory distress. EXT: Half dollar sized ulceration with surrounding induration, erythema and warmth to the distal left femur stump. Difficult to stage ulceration but appears to be stage III or IV. HEART: Regular rate and rhythm.? NEURO: ?Alert and oriented x3. Patient screened in triage and initial orders placed.? ?Additional care and disposition to be based upon?diagnostic testing and treatment. <Kiki Bales PA-C - Last Filed: 08/27/24 15:13> History of Present Illness HPI Narrative: I agree with the assessment and documentation by Kiki Bales PA-C. < Evita Saleem APRN - Last Filed: 08/28/24 00:30> Related Data Home Medications: Home Medications ?Medication ?Instructions ?Recorded ?Confirmed ?Last Taken ?Type umeclidinium 62.5 mcg-vilanterol 1 inh inhalation DAILY 04/27/24 07/16/24 Unknown History 25 mcg/actuation powdr for inhalation (Anoro Ellipta) amlodipine 5 mg tablet 5 mg PO DAILY 07/16/24 07/16/24 Unknown History <Kiki Bales PA-C - Last Filed: 08/27/24 15:13> Allergies/Adverse Reactions: Allergies Allergy/AdvReac Type Severity Reaction Status Date / Time No Known Allergies Allergy Verified 08/27/24 14:58 <Kiki Bales PA-C - Last Filed: 08/27/24 15:13> Review of Systems 2 Review of Systems: All systems reviewed & are unremarkable except as noted in HPI and below <Evita Saleem APRN - Last Filed: 08/28/24 00:30> [facility] Past Medical History Medical History: Medical History Peripheral vascular disease History of COPD History of cellulitis <Kiki Bales PA-C - Last Filed: 08/27/24 15:13> Surgical History Surgical History: Surgical History History of left above knee amputation [place] -> [place]; approx 2021 H/O vascular surgery Right, [place] <Kiki Bales PA-C - Last Filed: 08/27/24 15:13> Social History Social History: Social History Smoking packs per day: 1 Smoking cigarettes per day: 20.0 Years smoked: 20 Smoking pack-years: 20.00 Smoking status: Current every day smoker Substance use type: does not use Do You Feel Safe in your Home?: Yes Lack of Transportation: YES Lack of Food: Sometimes True Current Housing: I Have Housing Concerned About Future Housing: No Difficulty Paying Gas/Electric Bills: No Difficulty Paying for Meds: YES Currently Unemployed: No Education: Grade School Difficulty w/ Childcare or Family Care: No Living arrangements: with family Additional living arrangements comments: sister Spiritual care concerns: No <Kiki Bales PA-C - Last Filed: 08/27/24 15:13> Exam 2 Narrative: GENERAL: Well appearing, well-nourished, non-toxic, in no acute distress. HEAD: Normocephalic, atraumatic. NECK: Supple. No adenopathy, no masses. RESPIRATORY: Airway patent, respirations nonlabored. Clear to auscultation bilaterally, no rales, rhonchi, wheezing. CARDIOVASCULAR: Regular rate and rhythm without murmurs, rubs, or gallops. Peripheral pulses 2+ and equal bilaterally. ABDOMINAL: Soft, nontender, nondistended, no hepatosplenomegaly. Normoactive BS. MUSCULOSKELETAL: Moves all extremities. Strength/ROM intact without gross deformities. SKIN: Warm, dry, normal color. No rashes. Half dollar sized ulceration with surrounding induration, erythema and warmth to the distal left femur stump. Difficult to stage ulceration but appears to be stage III or IV. NEURO: A&O X3. Speech clear. Cranial nerves II-XII grossly intact. Steady gait. No ataxic movements. PSYCHIATRIC: Appropriate mood and affect. Normal interaction. <Evita Saleem, DEENA - Last Filed: 08/28/24 00:30> Course Vital Signs Vital signs: Vital Signs Temperature 36.4 C 08/27/24 15:01 Pulse Rate 116 H 08/27/24 15:01 Respiratory Rate 22 H 08/27/24 15:01 Blood Pressure 131/86 08/27/24 15:01 Pulse Oximetry 98 08/27/24 15:01 Oxygen Delivery Room Air 08/27/24 15:01 Temperature 36.4 C 08/27/24 15:01 Pulse Rate 88 08/27/24 23:35 Respiratory Rate 16 08/27/24 23:35 Blood Pressure 140/70 08/27/24 23:35 Pulse Oximetry 97 08/27/24 23:35 Oxygen Delivery Room Air 08/27/24 15:01 <Kiki Bales PA-C - Last Filed: 08/27/24 15:13> Vital Signs Temperature 36.4 C 08/27/24 15:01 Pulse Rate 116 H 08/27/24 15:01 Respiratory Rate 22 H 08/27/24 15:01 Blood Pressure 131/86 08/27/24 15:01 Pulse Oximetry 98 08/27/24 15:01 Oxygen Delivery Room Air 08/27/24 15:01 Temperature 36.4 C 08/27/24 15:01 Pulse Rate 88 08/27/24 23:35 Respiratory Rate 16 08/27/24 23:35 Blood Pressure 140/70 08/27/24 23:35 Pulse Oximetry 97 08/27/24 23:35 Oxygen Delivery Room Air 08/27/24 15:01 <Evita Saleem, PARK GUIDE - Last Filed: 08/28/24 00:30> MDM - Extremity Injury (Lower) MDM Narrative Medical decision making narrative: 64-year-old male presents to the emergency department for wound to his left femoral stump. Patient has had this wound for several months. States over the past few days it has become red and increasingly more painful with drainage. 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 At the end of last year he had several vascular procedures right lower extremity and bypass grafting without complication. Patient was evaluated in our ED at the end of June for similar complaint and was found to have a abscess near the wound. He was transferred to [facility] where he reportedly underwent surgery was hospitalized. Patient is unable to tell me how long he was hospitalized. He states he was not discharged on any medication has been out of medications for unknown amount of time. He states he has had fevers but has not had any since yesterday. Upon further discussion it was determined the patient was discharged home with prescriptions for doxycycline and Augmentin. He was also set up with wound care through [facility]. Labs Ordered: CBC, CMP, ESR, CRP, lactic acid, blood cultures Imaging Ordered: CT L femur Medications Ordered: Dilaudid 0.5mg IV, 1 L NS Results: Pt's CT scan indicates No fracture or definite osteomyelitis. No definite soft tissue abscess formation seen. No significant change from previous examination. His white blood cell count was within normal range. Patient's lactic acid was also normal. His ESR was elevated at 59, alk phos was 186, and CRP was 1.2. Diagnosis: L lower extremity wound, cellulitis Patient Education/Shared MDM: Results of CT scan and bloodwork shared with patient. He endorses improvement following pain medication administration. Patient strongly advised to follow-up with his PCP as soon as possible. He will be discharged home with prescriptions for the 2 antibiotics he was discharged on from [facility], Doxycycline and Augmentin. Patient reports he needs a wound care healthcare provider, but after further discussion it was determined that he was given 1 when he was discharged from [facility]. Patient strongly advised to call them tomorrow for follow-up care. Strict return precautions provided. Patient verbalized understanding is in agreement with plan. Vital signs stable at time of discharge. All questions answered. <Evita Saelem APRN - Last Filed: 08/28/24 00:30> Differential Diagnosis Differential diagnosis: Likely other (Abscess, sepsis, cellulitis) <Evita Saleem APRN - Last Filed: 08/28/24 00:30> Lab Data Attestation: I reviewed the patient's lab results. <Evita Saleem APRN - Last Filed: 08/28/24 00:30> Result diagrams: 08/27/24 18:31 08/27/24 18:31 <Kiki Bales PA-C - Last Filed: 08/27/24 15:13> Labs: Lab Results 08/27/24 Range/Units 18:31 WBC 8.5 (4.5-10.0) K/mm3 RBC 4.56 L (4.6-6.20) M/mm3 Hgb 10.5 L (14.0-18.0) g/dL Hct 34.7 L (42.0-52.0) % MCV 76.1 L (80-100) fl MCH 23.0 L (26-34) pg MCHC 30.3 L (32-36) g/dl RDW 17.8 H (11.5-14.5) % Plt Count 390 H (150-375) k/mm3 MPV 8.5 (7.4-10.4) fl Immature Gran % (Auto) 0.2 (0-0.5) % Neut % (Auto) 74.4 H (45.5-73.1) % Lymph % (Auto) 9.6 L (18.3-44.2) % [place] % (Auto) 12.2 H (2.6-8.5) % Eos % (Auto) 3.4 (0-4.4) % Baso % (Auto) 0.2 (0.2-1.2) % Lymph # (Auto) 0.82 L (0.9-3.2) K/mm3 [place] # (Auto) 1.0 H (0.1-0.6) K/mm3 Eos # (Auto) 0.3 (0-0.3) K/mm3 Baso # (Auto) 0.0 (0.0-0.1) K/mm3 Abs Immat Gran (auto) 0.02 (0.00-0.031) K/mm3 Absolute Neuts (auto) 6.3 (1.3-6.7) K/mm3 Absolute Nucleated RBC 0.000 (0.0-0.012) K/mm3 Nucleated RBC % 0.0 (0.0-0.2) % ESR 59 H (0-20) mm/hr PT 13.4 (11.1-14.7) Seconds INR 1.0 APTT 27.7 (22.3-36.8) Seconds Sodium 135 L (137-145) mmol/L Potassium 3.9 (3.4-5.0) mmol/L Chloride 100 (98-107) mmol/L Carbon Dioxide 24 (22-30) mmol/L Anion Gap 11 (4-12) mmol/L BUN 11 (9-20) mg/dL Creatinine 0.87 (0.7-1.3) mg/dL Estim Creat Clear Calc 68 ml/min Estimated GFR > 60 (59 - ) Glucose 124 H (65-110) mg/dL Lactic Acid 1.2 (0.7-2.0) mmol/L Calcium 9.0 (8.4-10.2) mg/dL Total Bilirubin 0.3 (0.2-1.3) mg/dL AST 20 (17-59) U/L ALT 17 (6-50) U/L Alkaline Phosphatase 186 H (38-126) U/L C-Reactive Protein 1.2 H (<1.0) mg/dL Total Protein 8.0 (6.3-8.2) g/dL Albumin 4.2 (3.5-5.1) g/dL <Kiki J. Bales, PA-C - Last Filed: 08/27/24 15:13> Lab Results 08/27/24 Range/Units 18:31 WBC 8.5 (4.5-10.0) K/mm3 RBC 4.56 L (4.6-6.20) M/mm3 Hgb 10.5 L (14.0-18.0) g/dL Hct 34.7 L (42.0-52.0) % MCV 76.1 L (80-100) fl MCH 23.0 L (26-34) pg MCHC 30.3 L (32-36) g/dl RDW 17.8 H (11.5-14.5) % Plt Count 390 H (150-375) k/mm3 MPV 8.5 (7.4-10.4) fl Immature Gran % (Auto) 0.2 (0-0.5) % Neut % (Auto) 74.4 H (45.5-73.1) % Lymph % (Auto) 9.6 L (18.3-44.2) % [place] % (Auto) 12.2 H (2.6-8.5) % Eos % (Auto) 3.4 (0-4.4) % Baso % (Auto) 0.2 (0.2-1.2) % Lymph # (Auto) 0.82 L (0.9-3.2) K/mm3 [place] # (Auto) 1.0 H (0.1-0.6) K/mm3 Eos # (Auto) 0.3 (0-0.3) K/mm3 Baso # (Auto) 0.0 (0.0-0.1) K/mm3 Abs Immat Gran (auto) 0.02 (0.00-0.031) K/mm3 Absolute Neuts (auto) 6.3 (1.3-6.7) K/mm3 Absolute Nucleated RBC 0.000 (0.0-0.012) K/mm3 Nucleated RBC % 0.0 (0.0-0.2) % ESR 59 H (0-20) mm/hr PT 13.4 (11.1-14.7) Seconds INR 1.0 APTT 27.7 (22.3-36.8) Seconds Sodium 135 L (137-145) mmol/L Potassium 3.9 (3.4-5.0) mmol/L Chloride 100 (98-107) mmol/L Carbon Dioxide 24 (22-30) mmol/L Anion Gap 11 (4-12) mmol/L BUN 11 (9-20) mg/dL Creatinine 0.87 (0.7-1.3) mg/dL Estim Creat Clear Calc 68 ml/min Estimated GFR > 60 (59 - ) Glucose 124 H (65-110) mg/dL Lactic Acid 1.2 (0.7-2.0) mmol/L Calcium 9.0 (8.4-10.2) mg/dL Total Bilirubin 0.3 (0.2-1.3) mg/dL AST 20 (17-59) U/L ALT 17 (6-50) U/L Alkaline Phosphatase 186 H (38-126) U/L C-Reactive Protein 1.2 H (<1.0) mg/dL Total Protein 8.0 (6.3-8.2) g/dL Albumin 4.2 (3.5-5.1) g/dL <Evita Saleem APRN - Last Filed: 08/28/24 00:30> Imaging Data Attestation: I personally reviewed and interpreted this imaging study as follows: < Evita Saleem APRN - Last Filed: 08/28/24 00:30> Radiologist's impression: Impressions Femur CT 08/27/24 20:54 IMPRESSION: No fracture or definite osteomyelitis. No definite soft tissue abscess formation seen. No significant change from previous examination. <Evita Saleem APRN - Last Filed: 08/28/24 00:30> Discharge Plan Discharge Clinical Impression: Leg wound, left, Cellulitis of left leg <Kiki Bales PA-C - Last Filed: 08/27/24 15:13> Patient Disposition: Home, Self-Care <CARO Flores Last Filed: 08/27/24 15:13> Condition: Guarded Prognosis <CARO Flores Last Filed: 08/27/24 15:13> Instructions: Antibiotic Form <CARO Flores Last Filed: 08/27/24 15:13> Additional Instructions: Please return to the ER with any worsening symptoms. Follow-up with primary care provider as soon as possible. Take all medications as prescribed. Call [facility] tomorrow morning and set up an appointment. Complete your full dose of antibiotics. [facility] ? Address: [address] [place] [address] [address], [place] [address] <Kiki Bales PA-C - Last Filed: 08/27/24 15:13> Patient Language: Tamazight <Kiki Bales PA-C - Last Filed: 08/27/24 15:13> Prescriptions: No Action Anoro Ellipta 62.5-25 mcg/actuation blister with device 1 inh INHALATION DAILY atorvastatin 40 mg tablet 40 mg PO DAILY Qty: 30 0RF gabapentin 600 mg tablet 600 mg PO BID Qty: 60 0RF isosorbide mononitrate 30 mg tablet extended release 24 hr 30 mg PO DAILY Qty: 30 0RF potassium chloride 10 mEq tablet extended release 10 meq PO DAILY Qty: 30 0RF clopidogrel 75 mg tablet 75 mg PO BID Qty: 60 0RF pantoprazole 40 mg tablet,delayed release (DR/EC) 40 mg PO BID Qty: 30 0RF aspirin 81 mg tablet,chewable 81 mg PO DAILY Qty: 30 0RF albuterol sulfate 90 mcg/actuation HFA aerosol inhaler 2 puff INHALATION Q4H PRN (Reason: SOB) Qty: 6.7 0RF metoprolol tartrate 25 mg tablet 25 mg PO DAILY Qty: 30 0RF duloxetine 60 mg capsule,delayed release(DR/EC) 60 mg PO DAILY Qty: 30 0RF umeclidinium-vilanterol 62.5-25 mcg/actuation blister with device 1 inh inhalation Q24H Qty: 14 0RF gabapentin 600 mg tablet 600 mg PO BID 30 Days Qty: 60 0RF metoprolol tartrate 25 mg tablet 25 mg PO BID 30 Days Qty: 60 0RF pantoprazole 40 mg tablet,delayed release (DR/EC) 40 mg PO BID 30 Days Qty: 60 0RF atorvastatin 40 mg tablet 40 mg PO HS 30 Days Qty: 30 0RF clopidogrel 75 mg tablet 75 mg PO DAILY 30 Days Qty: 30 0RF duloxetine 60 mg capsule,delayed release(DR/EC) 60 mg PO DAILY Qty: 30 0RF isosorbide mononitrate 30 mg tablet extended release 24 hr 30 mg PO DAILY Qty: 30 0RF amlodipine 5 mg tablet 5 mg PO DAILY <Kiki Bales PA-C - Last Filed: 08/27/24 15:13> Follow-up/Referrals: UNKNOWN,DOCTOR [Primary Care Provider] - <Kiki Bales PA-C - Last Filed: 08/27/24 15:13> Time of Disposition: 00:29 <Kiki Bales PA-C - Last Filed: 08/27/24 15:13> 00:29 <Evita Saleem APRN - Last Filed: 08/28/24 00:30>
--- OUTSIDE RECORDS SUMMARY | 2024-08-27 16:48 | XMS_ITS | Patient Health Record ---
Author Organization [facility] Address [address] [place] [address] Care Team Providers Care Food Product Inspector Name Role Phone Narciso Roldan Primary Care [...] Problem Status W/U Status Risk Notes Problem 808251807 Prostate cancer screening (Z12.5) Active confirmed Problem 59613018 Depression, unspecified depression type (F32.9) Active confirmed Problem Methamphetamine abuse (700715901) Methamphetamine abuse (F15.10) Active confirmed Problem 970922422 Erectile dysfunction, unspecified erectile dysfunction type (N52.9) Active confirmed Problem 300658559 Gastroesophageal reflux disease, esophagitis presence not specified (K21.9) Active confirmed Problem 74303806 Hyperlipidemia, unspecified hyperlipidemia type (E78.5) Active confirmed Problem 629489423 PAD (peripheral artery disease) (I73.9) Active confirmed Problem 751553507 Tobacco use disorder (F17.200) Active confirmed Problem 94014484 Hypertension, unspecified type (I10) Active confirmed Problem 889001196 Angina at rest (I20.8) 020 Active confirmed Plan Of Treatment No Information Insurance Providers Payer Name Payer Address Payer Phone Subscriber Number Group Number Insured Name Patient Relationship to Insured Coverage Start Date Coverage End Date [facility] [address] [place] [address] [phone] [id number] Osito Aburto Self - patient is the insured 9 Medical (General) History Medical History History ICD Code hep c positive Clogged artery Surgical History Surgery Date(Month/Year) artery replaced in both legs 2015
--- OUTSIDE RECORDS SUMMARY | 2024-08-27 16:48 | XMS_ITS | CONTINUITY OF CARE DOCUMENT ---
Author Name tashadaniel tashadaniel Address Unknown Organization [facility] Address [address] [place] [address] Phone [phone] Care Team Providers Care Overhauler Helper Name Role Phone Jn David MD Unavailable [...] In-person encounter Office Visit Calixto Aquino MD [facility] Office Family History of CVA or Stroke:Other [...] TABLET active 1 TAB DAILY Karol Duarte RANITIDINE HCL 150 MG ORAL CAPSULE active 1 TAB TWICE DAILY Karol Felicia NABUMETONE 750 MG ORAL TABLET active 1 TAB TWICE DAILY Karol Felicia SOCIAL HISTORY Date Observation Value Provider smoking/tobacco [...] 0.5PK Karol Felicia cigarette use yes Karol Felicia smoking status current every day smoker [place] FAMILY HISTORY Family Member Condition Full Sister Family History of CV A or Stroke: Full Brother Family History of Co ronary Artery Disease: Mother Family History of Co ronary Artery Disease: Mother Family History of Di abetes: INSURANCE PROVIDERS Payer name Policy type / Coverage type [facility] ID [employer] [place] Medicaid [id number] TREATMENT PLAN Date Name Performer Cardiology,NEW PT Calixto Aquino MD Cardiology,NEW PT Calixto Aquino MD Cardiology,NEW PT:Se hailee bilateral femoral disease. Scheduled for bilat fem-pop at [place]. S tress test negative. Cleared for surgery. Calixto Aquino MD HISTORY OF PROCEDURES Procedure Date Procedure Name Provider Procedure Notes S tatus EKG Calixto Aquino MD complete d
--- OUTSIDE RECORDS SUMMARY | 2024-08-27 17:11 | XMS_ITS | CONTINUITY OF CARE DOCUMENT ---
Author Name tashadaniel tashadaniel Address Unknown Organization [facility] Address [address] [place] [address] Phone [phone] Care Team Providers Care Client Portfolio Manager Name Role Phone Jn David MD Unavailable Jn David MD Unavailable [phone] PROBLEMS Condition Status Date Provider Notes Family [...] In-person encounter Office Visit Calixto Aquino MD [facility] Family History of CVA or Stroke:Other [...] Payer name Policy type / Coverage type [facility] ID [employer] [place] Medicaid [id number] 454 TREATMENT PLAN Date Name Performer Cardiology,NEW PT Calixto Aquino MD Cardiology,NEW PT Calixto Aquino MD Cardiology,NEW PT:Se hailee bilateral femoral disease. Scheduled for bilat fem-pop at [place]. S tress test negative. Cleared for surgery. Calixto Aquino MD HISTORY OF PROCEDURES Procedure Date Procedure Name Provider Procedure Notes S tatus EKG Calixto Aquino MD complete d
[2024-08-27 18:37] LABS: Basophils Percent Auto 0.2 % (0.2-1.2); Eosinophils Absolute Auto 0.3 K/mm3 (0-0.3); Eosinophils Percent Auto 3.4 % (0-4.4); Hematocrit 34.7 % (42.0-52.0); Hemoglobin 10.5 g/dL (14.0-18.0); Immature Granulocyte Absolute 0.02 K/mm3 (0.00-0.031); Immature Granulocyte Percent A 0.2 % (0-0.5); Lymphocytes Absolute Auto 0.82 K/mm3 (0.9-3.2); Lymphocytes Percent Auto 9.6 % (18.3-44.2); Mean Corpuscular HGB Conc 30.3 g/dl (32-36); Mean Corpuscular Volume 76.1 fl (80-100); Mean Platelet Volume 8.5 fl (7.4-10.4); Monocytes Percent Auto 12.2 % (2.6-8.5); Neutrophils Absolute Auto 6.3 K/mm3 (1.3-6.7); Neutrophils Percent Auto 74.4 % (45.5-73.1); Platelet Count Result 390 k/mm3 (150-375); Red Blood Count 4.56 M/mm3 (4.6-6.20); Red Cell Distribution Width 17.8 % (11.5-14.5); White Blood Count 8.5 K/mm3 (4.5-10.0)
[2024-08-27 18:39] VITALS: BP 179/76; PULSE 92; RESP 17; O2SAT 100
[2024-08-27 18:46] LABS: Lactic Acid Reflex 1.2 mmol/L (0.7-2.0)
[2024-08-27 18:49] LABS: Alanine Aminotransferase 17 U/L (6-50); Albumin Level 4.2 g/dL (3.5-5.1); Alkaline Phosphatase 186 U/L (38-126); Anion Gap 11 mmol/L (4-12); Aspartate Amino Transferase 20 U/L (17-59); Bilirubin,Total 0.3 mg/dL (0.2-1.3); Blood Urea Nitrogen 11 mg/dL (9-20); CRP 1.2 mg/dL (<1.0); Carbon Dioxide 24 mmol/L (22-30); Chloride 100 mmol/L (98-107); Estimated CRCL calculation 68 ml/min; Estimated Glomerular Filt Rate > 60; Glucose 124 mg/dL (65-110); Potassium 3.9 mmol/L (3.4-5.0); Sodium 135 mmol/L (137-145)
[2024-08-27 19:12] LABS: Erythrocyte Sedimentation Rate 59 mm/hr (0-20)
[2024-08-27 19:55] LABS: Partial Thromboplastin Time 27.7 Seconds (22.3-36.8); Prothrombin Time 13.4 Seconds (11.1-14.7)
[2024-08-27] MEDS: SODIUM CHLORIDE 0.9% IV 1,000 ML 999 ML IV CONT (19:55)
[2024-08-27] MEDS: HYDROmorphone HCL INJ (*CRX) 1 MG/ML SYR 0.5 MG IV PUSH (19:56)
[2024-08-27] MEDS: CEFEPIME 2 GM/NS 50 ML 2 GM/50 ML BAG IVPB (20:48)
[2024-08-27] MEDS: metroNIDAZOLE 500 MG/ISO 100ML 500 MG/100 ML BAG 100 MG IVPB (21:35)
[2024-08-27 21:45] VITALS: BP 148/94; PULSE 96; RESP 17; O2SAT 100
[2024-08-27] MEDS: VANCOMYCIN 2,000 MG/NS 500 ML 2,000 MG/500 ML BAG 250 MG IVPB (22:46)
[2024-08-27 23:35] VITALS: BP 140/70; PULSE 88; RESP 16; O2SAT 97
[2024-08-28] MEDS: HYDROcodone/acetaminophen (*CRX) 5-325 MG TABLET 1 TAB PO (00:22)
[2024-08-28 01:55] VITALS: BP 137/82; PULSE 82; RESP 16; O2SAT 99
== END 2024-08-28 02:18 | disposition home or self-care (01) ==
PROVIDERS: Physician Assistant; Emergency Provider Registered Nurse
DX: T87.44 Infection of amputation stump, left lower extremity (principal); L03.116 Cellulitis of left lower limb; J44.9 Chronic obstructive pulmonary disease, unspecified; I73.9 Peripheral vascular disease, unspecified; F17.210 Nicotine dependence, cigarettes, uncomplicated; Y83.5 Amputation of limb(s) as the cause of abnormal reaction of the patient, or of later complication, without mention of misadventure at the time of the procedure
CPT/HCPCS: 36415; 73701; 80053; 83605; 85025; 85610; 85652; 85730; 86140; 87040; 96365; 96366; 96367; 96368; 96375; 99284; A9270; J0692; J1171; J1836; J3370; J7030; Q9967